=== PATIENT | male | born 1945 | race Caucasian/White ===

== ENCOUNTER 2020-07-05 14:00 | Inpatient (IN) | payer MEDICARE, BC, OTHER ==
[2020-07-05] MEDS: Sodium Chloride 0.9% 10 ML Syringe FLUSH PRN ×3 (15:41→18:06)
[2020-07-05] MEDS ORDERED: Albuterol/Ipratropium 3.0-0.5 MG/3 ML Neb Soln INH PRN (16:17)
[2020-07-05] MEDS ORDERED: Albuterol 8 GM Inhaler INH PRN (16:17)
[2020-07-05] MEDS ORDERED: cefTRIAXone 1 GM in Sodium Chloride 0.9% 50 ML IV SCH (16:30)
[2020-07-05] MEDS: Enoxaparin 40 MG/0.4 ML Syringe SUBCUT SCH (16:31)
[2020-07-05] MEDS: cefTRIAXone 1 GM Vial IVPUSH SCH (16:59)
[2020-07-05] MEDS: Doxycycline 100 MG in Sodium Chloride 0.9% 100 ML IV SCH (17:05)
[2020-07-05] MEDS ORDERED: Albuterol/Ipratropium 3.0-0.5 MG/3 ML Neb Soln NEB ONE (17:32)
--- NOTE | 2020-07-05 18:40 | PCM.HP.2 ---
H&P History of Present Illness - General Date of Service: 07/05/20 Admit Problem/Dx: Admission Diagnosis/Problem Admission Diagnosis/Problem Pneumonia Source of Information: Patient, Old Records, Provider - History of Present Illness Initial Comments - Free Text/Narative: Marcus was seen in [facility] on 06/29 for shortness of breath, wheezing, coughing, was found to have elevated white count of 25.6, found to have questionable bilateral pneumonia with COPD, given Azithromycin 250 mg, 500 mg day 1 and 250 mg daily x 4 days, DuoNebs and Albuterol nebs. He was rechecked on 07/01, added Prednisone 40 mg daily, has 4 pills left, was taken 1 tab in am and 1 tab in pm. Worsening breathing today when presented to [facility], WBC was 33, CXR left lower pneumonia, has wheezing throughout. 51 yr 2 ppd history, quit 1 year ago on his own. Drinks socially. Has had some nausea but no vomiting, epigastric tenderness. Had diarrhea but formed stool this morning. No dysuria, frequency or hematuria. No chest pain, swollen glands. No rash, some mosquito bites to left knee. No edema. History of anxiety, taking Fluoxetine and Ativan. 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 - Related Data Allergies/Adverse Reactions: Allergies Allergy/AdvReac Type Severity Reaction Status Date / Time No Known Allergies Allergy Verified 07/05/20 14:31 Home Medications: Home Meds Albuterol [Proventil HFA] 1 - 2 inh INH Q4H PRN 07/05/20 [History] Albuterol/Ipratropium [DuoNeb 3.0-0.5 MG/3 ML] 1 inh INH Q4H PRN 07/05/20 [History] FLUoxetine HCl [Prozac] 20 mg PO DAILY 07/05/20 [History] Ibuprofen 400 mg PO ASDIRECTED PRN 07/05/20 [History] LORazepam [Lorazepam] 1 mg PO BID PRN 07/05/20 [History] predniSONE 40 mg PO DAILY 07/05/20 [History] Past Medical History HEENT History: Reports: Cataract Respiratory History: Reports: Asthma Gastrointestinal History: Reports: Other (See Below) Other Gastrointestinal History: diverticulitis Musculoskeletal History: Reports: Back Pain, Chronic, Fracture, Other (See Below) Other Musculoskeletal History: right foot fx in a boot Neurological History: Reports: None Psychiatric History: Reports: Anxiety Endocrine/Metabolic History: Reports: None Hematologic History: Reports: None Immunologic History: Reports: None Oncologic (Cancer) History: Reports: None Dermatologic History: Reports: None - Infectious Disease History Infectious Disease History: Reports: Chicken Pox, Measles, Mononucleosis, Mumps, Shingles - Past Surgical History HEENT Surgical History: Reports: Cataract Surgery, Tonsillectomy GI Surgical History: Reports: Colonoscopy Social & Family History - Family History Family Medical History: Noncontributory - Tobacco Use Smoking Status *Q: Former Smoker Used Tobacco, but Quit: Yes Month/Year Tobacco Last Used: 1 year ago - Caffeine Use Caffeine Use: Reports: Coffee, Soda, Tea - Recreational Drug Use Recreational Drug Use: No H&P Review of Systems - Review of Systems: Review Of Systems: Comprehensive ROS is negative, except as noted in HPI. Exam - Exam Exam: See Below - Vital Signs Vital Signs: Last Vital Signs Temp 97.8 F 07/05/20 16:35 Pulse 81 07/05/20 18:00 Resp 20 07/05/20 16:35 BP 115/64 07/05/20 16:35 Pulse Ox 95 07/05/20 16:35 Weight: 175 lb 1.6 oz - Exam General: Alert, Oriented, Cooperative HEENT: PERRLA, Conjunctiva Clear, Hearing Intact, Mucosa Moist & [place]ck: Supple, Trachea Midline. No: Lymphadenopathy Lungs: Normal Respiratory Effort, Rales (throughout), Wheezing (throughout) Cardiovascular: Regular Rate, Regular Rhythm GI/Abdominal Exam: Normal Bowel Sounds, Soft, No Distention, Tender (epigastric, diffuse in lower abdomen) (Male) Exam: Deferred Rectal (Males) Exam: Deferred Back Exam: No: CVA Tenderness (R), CVA Tenderness (L) Extremities: No Pedal Edema Skin: Warm, Dry, Intact, Other (healing mosquito bites on left knee) Sepsis Event Note - Evaluation Sepsis Screening Result: Sepsis Risk - Focused Exam Vital Signs: Vital Signs Temp Pulse Pulse Resp BP Pulse Ox Pulse Ox 07/05/20 18:00 81 07/05/20 17:44 92 07/05/20 16:35 97.8 F 80 20 115/64 95 07/05/20 15:45 91 L 07/05/20 14:25 98.1 F 103 H 16 115/58 L 91 L Pulse Ox 07/05/20 18:00 07/05/20 17:44 07/05/20 16:35 07/05/20 15:45 07/05/20 14:25 91 L *Q Meaningful Use (ADM) - VTE Risk Assess *Q Each Risk Factor Represents 1 Point: Serious lung disease including pneumonia Total Score 1 Point Risk Factors: 1 Each Risk Factor Represents 2 Points: Age 60 - 74 Years Total Score 2 Point Risk Factors: 2 Each Risk Factor Represents 3 Points: None Total Score 3 Point Risk Factors: 0 Each Risk Factor Represents 5 Points: None Total Score 5 Point Risk Factors: 0 Venous Thromboembolism Risk Factor Score *Q: 3 - Problem List (1) Left lower lobe pneumonia SNOMED Code(s): 903222532 ICD Code: J18.9 - PNEUMONIA, UNSPECIFIED ORGANISM Status: Acute Current Visit: Yes (2) Anxiety SNOMED Code(s): 65559161 ICD Code: F41.9 - ANXIETY DISORDER, UNSPECIFIED Status: Acute Current Visit: Yes (3) Former smoker SNOMED Code(s): 0415829 ICD Code: Z87.891 - PERSONAL HISTORY OF NICOTINE DEPENDENCE Status: Acute Current Visit: Yes (4) COPD (chronic obstructive pulmonary disease) SNOMED Code(s): 14201730 ICD Code: J44.9 - CHRONIC OBSTRUCTIVE PULMONARY DISEASE, UNSPECIFIED Status: Acute Current Visit: Yes Problem List Initiated/Reviewed/Updated: Yes Orders Last 24hrs: Active Orders 24 hr Category Date Time Status Patient Status [ADT] Routine ADT 07/05/20 14:49 Active Ambulate [RC] ASDIRECTED Care 07/05/20 14:49 Active Oxygen Therapy [RC] PRN Care 07/05/20 14:49 Active RT Aerosol Therapy [RC] ASDIRECTED Care 07/05/20 16:18 Active RT Aerosol Therapy [RC] ASDIRECTED Care 07/05/20 17:32 Active RT Post Treatment Assessment [RC] Click to Edit Care 07/05/20 16:18 Active VTE/DVT Education [RC] Per Unit Routine Care 07/05/20 14:49 Active Vital Signs [RC] Q4H Care 07/05/20 14:49 Active Regular Diet [DIET] Diet 07/05/20 Lunch Active Albuterol [Ventolin HFA] Med 07/05/20 16:17 Active 0 gm INH Q4H PRN Albuterol/Ipratropium [DuoNeb 3.0-0.5 MG/3 ML] Med 07/05/20 21:00 Active 3 ml INH QIDRT Doxycycline [Vibramycin] 100 mg Med 07/05/20 17:00 Active Sodium Chloride 0.9% [Normal Saline] 100 ml IV Q12H Enoxaparin [Lovenox] Med 07/05/20 16:00 Active 40 mg SUBCUT Q24H FLUoxetine [PROzac] Med 07/06/20 09:00 Active 20 mg PO DAILY Ibuprofen [Motrin] Med 07/05/20 16:20 Active 400 mg PO Q4H PRN LORazepam [Ativan] Med 07/05/20 16:17 Active 1 mg PO BID PRN Sodium Chloride 0.9% [Saline Flush] Med 07/05/20 14:52 Active 10 ml FLUSH ASDIRECTED PRN cefTRIAXone [Rocephin] Med 07/05/20 16:30 Active 1 gm IVPUSH Q24H Antiembolic Hose [OM.PC] Per Unit Routine Oth 07/05/20 14:50 Ordered Saline Lock Insert [OM.PC] Routine Oth 07/05/20 14:52 Ordered Resuscitation Status Routine Resus Stat 07/05/20 14:49 Ordered Medication Orders Albuterol (Ventolin Hfa) 0 gm INH Q4H PRN PRN Reason: Dyspnea Albuterol/Ipratropium (Duoneb 3.0-0.5 Mg/3 Ml) 3 ml INH QIDRT [facility] Ceftriaxone Sodium (Rocephin) 1 gm IVPUSH Q24H [facility] Last Admin: 07/05/20 16:59 Dose: 1 gm Documented by: JAYSHREE Enoxaparin Sodium (Lovenox) 40 mg SUBCUT Q24H REPLACED BY [facility] Last Admin: 07/05/20 16:31 Dose: 40 mg Documented by: JAYSHREE Fluoxetine HCl (Prozac) 20 mg PO DAILY REPLACED BY [facility] Doxycycline Hyclate 100 mg/ (Sodium Chloride) 100 mls @ 100 mls/hr IV Q12H REPLACED BY [facility] Last Admin: 07/05/20 17:05 Dose: 100 mls/hr Documented by: JAYSHREE Ibuprofen (Motrin) 400 mg PO Q4H PRN PRN Reason: Pain Lorazepam (Ativan) 1 mg PO BID PRN PRN Reason: Anxiety Sodium Chloride (Saline Flush) 10 ml FLUSH ASDIRECTED PRN PRN Reason: Keep Vein Open Last Admin: 07/05/20 18:06 Dose: 10 ml Documented by: Admin: 07/05/20 16:59 Dose: 10 ml Documented by: Admin: 07/05/20 15:41 Dose: 10 ml Documented by: ADONIS Assessment/Plan Comment:: 1. Admit for Community acquired pneumonia, IV antibiotics. 2. Rocephin 1 gram IV q24h, Doxycycline 100 mg IV bid. Repeat labs tomorrow. 3. DuoNebs qid scheduled, Albuterol nebs q4h prn. 4. Regular diet. 5. DVT prophylaxis: Lovenox 40 mg SQ daily. 6. Continue Home medications. 7. FULL CODE. - Mortality Measure Prognosis:: Good
[2020-07-05] MEDS: Albuterol/Ipratropium 3.0-0.5 MG/3 ML Neb Soln INH SCH (21:44)
[2020-07-06] MEDS: Sodium Chloride 0.9% 10 ML Syringe FLUSH PRN (04:31)
[2020-07-06] MEDS: Doxycycline 100 MG in Sodium Chloride 0.9% 100 ML IV SCH ×2 (04:32→16:53)
[2020-07-06] MEDS: Ibuprofen 400 MG Tab PO PRN ×2 (04:45→16:09)
[2020-07-06] MEDS: Albuterol/Ipratropium 3.0-0.5 MG/3 ML Neb Soln INH SCH ×3 (06:27→20:13)
[2020-07-06] MEDS: FLUoxetine 20 MG Cap PO SCH (08:41)
--- NOTE | 2020-07-06 11:19 | PCM.PN ---
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 Stools normal. Tolerated breakfast well. - Patient Data Vitals - Most Recent: Last Vital Signs Temp 98.7 F 07/06/20 05:45 Pulse 88 07/06/20 06:27 Resp 16 07/06/20 04:00 BP 150/76 H 07/06/20 04:00 Pulse Ox 94 L 07/06/20 04:00 Weight - Most Recent: 175 lb 1.6 oz I&O - Last 24 Hours: Intake & Output 07/05/20 07/06/20 07/06/20 22:59 06:59 14:59 Intake Total 100 Balance 100 Lab Results Last 24 Hours: Laboratory Results - last 24 hr 07/06/20 07/06/20 Range/Units 06:25 06:25 WBC 20.8 H (4.5-12.0) X10-3/uL RBC 3.92 L (4.30-5.75) x10(6)uL Hgb 11.9 L D (13.5-17.8) g/dL Hct 36.1 (30.0-51.3) % MCV 92.2 (80-96) fL MCH 30.5 (27.7-33.6) pg MCHC 33.1 (32.2-35.4) g/dL RDW 13.9 (11.5-15.5) % Plt Count 292 (125-369) X10(3)uL MPV 8.4 (7.4-10.4) fL Add Manual Diff Yes Neutrophils % (Manual) 92 H (46-82) % Lymphocytes % (Manual) 6 L (13-37) % Monocytes % (Manual) 2 L (4-12) % Sodium 130 L (135-145) mmol/L Potassium 3.5 (3.5-5.3) mmol/L Chloride 94 L (100-110) mmol/L Carbon Dioxide 29 (21-32) mmol/L BUN 18 (7-18) mg/dL Creatinine 1.0 (0.70-1.30) mg/dL Est Cr Clr Drug Dosing 58.48 mL/min Estimated GFR (MDRD) > 60 (>60) BUN/Creatinine Ratio 18.0 (9-20) Glucose 166 H (80-116) mg/dL Calcium 7.1 L (8.6-10.2) mg/dL Med Orders - Current: Current Medications Albuterol (Ventolin Hfa) 0 gm INH Q4H PRN PRN Reason: Dyspnea Albuterol/Ipratropium (Duoneb 3.0-0.5 Mg/3 Ml) 3 ml INH QIDRT [facility] Last Admin: 07/06/20 06:27 Dose: 3 ml Documented by: Ceftriaxone Sodium (Rocephin) 1 gm IVPUSH Q24H [facility] Last Admin: 07/05/20 16:59 Dose: 1 gm Documented by: Enoxaparin Sodium (Lovenox) 40 mg SUBCUT Q24H [facility] Last Admin: 07/05/20 16:31 Dose: 40 mg Documented by: Fluoxetine HCl (Prozac) 20 mg PO DAILY [facility] Last Admin: 07/06/20 08:41 Dose: 20 mg Documented by: Doxycycline Hyclate 100 mg/ (Sodium Chloride) 100 mls @ 100 mls/hr IV Q12H [facility] Last Admin: 07/06/20 04:32 Dose: 100 mls/hr Documented by: Sodium Chloride (Normal Saline) 1,000 mls @ 100 mls/hr IV ASDIRECTED [facility] Ibuprofen (Motrin) 400 mg PO Q4H PRN PRN Reason: Pain Last Admin: 07/06/20 04:45 Dose: 400 mg Documented by: Lorazepam (Ativan) 1 mg PO BID PRN PRN Reason: Anxiety Sodium Chloride (Saline Flush) 10 ml FLUSH ASDIRECTED PRN PRN Reason: Keep Vein Open Last Admin: 07/06/20 04:31 Dose: 10 ml Documented by: Discontinued Medications Albuterol/Ipratropium (Duoneb 3.0-0.5 Mg/3 Ml) 3 ml INH Q4H PRN PRN Reason: Dyspnea Albuterol/Ipratropium (Duoneb 3.0-0.5 Mg/3 Ml) 3 ml NEB ONETIME ONE Stop: 07/05/20 17:33 Last Admin: 07/05/20 17:44 Dose: 3 ml Documented by: - Exam General: Alert, Oriented, Cooperative, No Acute Distress Lungs: Normal Respiratory Effort, Decreased Breath Sounds (decreased air entry), Rales (left lower lobe). No: Wheezing Cardiovascular: Regular Rate, Regular Rhythm GI/Abdominal Exam: Normal Bowel Sounds, Soft, Non-Tender, No Distention Extremities: No Pedal Edema Peripheral Pulses: 2+: Radial (L), Radial (R) Skin: Warm, Dry, Intact Sepsis Event Note - Evaluation Sepsis Screening Result: No Definite Risk - Focused Exam Vital Signs: Vital Signs Temp Temp Temp Pulse Resp BP Pulse Ox 07/06/20 06:27 88 07/06/20 05:45 98.7 F 07/06/20 04:45 99.9 F 07/06/20 04:00 99.9 F 99 16 150/76 H 94 L 07/06/20 00:00 97.8 F 82 18 102/60 95 - Problem List & Annotations (1) Left lower lobe pneumonia SNOMED Code(s): 798278640 Code(s): J18.9 - PNEUMONIA, UNSPECIFIED ORGANISM Status: Acute Current Visit: Yes (2) Anxiety SNOMED Code(s): 71936953 Code(s): F41.9 - ANXIETY DISORDER, UNSPECIFIED Status: Acute Current Visit: Yes (3) Former smoker SNOMED Code(s): 5340992 Code(s): Z87.891 - PERSONAL HISTORY OF NICOTINE DEPENDENCE Status: Acute Current Visit: Yes (4) COPD (chronic obstructive pulmonary disease) SNOMED Code(s): 49466092 Code(s): J44.9 - CHRONIC OBSTRUCTIVE PULMONARY DISEASE, UNSPECIFIED Status: Acute Current Visit: Yes Annotation/Comment:: on chest x-ray, states he had PFTs at [place] but not sure what they said. - Problem List Review Problem List Initiated/Reviewed/Updated: Yes - My Orders Last 24 Hours: My Active Orders 07/05/20 Lunch Regular Diet [DIET] 07/05/20 14:49 Patient Status [ADT] Routine Ambulate [RC] ASDIRECTED Oxygen Therapy [RC] PRN VTE/DVT Education [RC] Per Unit Routine Vital Signs [RC] Q4H Resuscitation Status Routine 07/05/20 14:50 Antiembolic Hose [OM.PC] Per Unit Routine 07/05/20 14:52 Sodium Chloride 0.9% [Saline Flush] 10 ml FLUSH ASDIRECTED PRN Saline Lock Insert [OM.PC] Routine 07/05/20 16:00 Enoxaparin [Lovenox] 40 mg SUBCUT Q24H 07/05/20 16:17 Albuterol [Ventolin HFA] 0 gm INH Q4H PRN LORazepam [Ativan] 1 mg PO BID PRN 07/05/20 16:18 RT Aerosol Therapy [RC] ASDIRECTED 07/05/20 16:20 Ibuprofen [Motrin] 400 mg PO Q4H PRN 07/05/20 16:30 cefTRIAXone [Rocephin] 1 gm IVPUSH Q24H 07/05/20 17:00 Doxycycline [Vibramycin] 100 mg Sodium Chloride 0.9% [Normal Saline] 100 ml IV Q12H 07/05/20 21:00 Albuterol/Ipratropium [DuoNeb 3.0-0.5 MG/3 ML] 3 ml INH QIDRT 07/06/20 08:15 Sodium Chloride 0.9% [Normal Saline] 1,000 ml IV ASDIRECTED 07/06/20 09:00 FLUoxetine [PROzac] 20 mg PO DAILY 07/06/20 09:18 Communication Order [RC] Q1HWA Incentive Spirometry [RT Incentive Spirometry] [RC] Q1HWA 07/07/20 06:00 BASIC METABOLIC PANEL,BMP [CHEM] Routine CBC WITH AUTO DIFF [HEME] Routine - Plan Plan:: 1. Rocephin 1 gram IV q24h, Doxycycline 100 mg IV bid day 2. WBC down to 20.8, 92% Neutrophils. Repeat labs tomorrow. 2. Hyponatremia: NS 100 ml/hr, recheck labs tomorrow. 3. DuoNebs qid scheduled, Albuterol nebs q4h prn.
[2020-07-06] MEDS: LORazepam 1 MG Tab PO PRN (16:17)
[2020-07-06] MEDS: Enoxaparin 40 MG/0.4 ML Syringe SUBCUT SCH (16:49)
[2020-07-06] MEDS: cefTRIAXone 1 GM Vial IVPUSH SCH (16:50)
[2020-07-06] MEDS ORDERED: Levalbuterol HCl 1.25 MG/3 ML Neb NEB PRN (16:55)
[2020-07-06] MEDS: Sodium Chloride 0.9% 1,000 ML IV SCH (20:00)
[2020-07-06] MEDS: Budesonide 0.25 MG/2 ML Neb Susp NEB SCH (20:10)
[2020-07-06] MEDS: Tamsulosin 0.4 MG Cap.ER PO SCH (20:10)
[2020-07-07] MEDS: Doxycycline 100 MG in Sodium Chloride 0.9% 100 ML IV SCH ×2 (04:28→16:41)
[2020-07-07] MEDS ORDERED: Acetaminophen 325 MG Tab PO PRN ×2 (05:44→08:23)
[2020-07-07] MEDS: LORazepam 1 MG Tab PO PRN (05:47)
[2020-07-07] MEDS: Sodium Chloride 0.9% 1,000 ML IV SCH ×2 (05:51→16:07)
[2020-07-07] MEDS: Budesonide 0.25 MG/2 ML Neb Susp NEB SCH ×2 (06:07→20:35)
[2020-07-07] MEDS ORDERED: LORazepam 1 MG Tab PO PRN (08:24)
--- NOTE | 2020-07-07 09:23 | PCM.PN ---
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 He states he does not feel as jittery since medication was changed. Feels better. Had episode of anxiety this morning. Temp of 100.2 yesterday came down with Tylenol. He was incontinent of stool yesterday, states he has history of diverticulitis, but usually has abdominal pain with it. He stated Metronidazole makes him sick to his stomach and have metallic taste. Denies any abdominal pain now. - Patient Data Vitals - Most Recent: Last Vital Signs Temp 98.9 F 07/07/20 06:17 Pulse 98 07/07/20 06:17 Resp 18 07/07/20 06:17 BP 119/69 07/07/20 05:45 Pulse Ox 95 07/07/20 06:17 Weight - Most Recent: 175 lb 1.6 oz Lab Results Last 24 Hours: Laboratory Results - last 24 hr 07/07/20 07/07/20 Range/Units 06:30 06:30 WBC 21.7 H (4.5-12.0) X10-3/uL RBC 4.21 L (4.30-5.75) x10(6)uL Hgb 13.0 L (13.5-17.8) g/dL Hct 38.8 (30.0-51.3) % MCV 92.2 (80-96) fL MCH 30.9 (27.7-33.6) pg MCHC 33.5 (32.2-35.4) g/dL RDW 14.1 (11.5-15.5) % Plt Count 345 (125-369) X10(3)uL MPV 8.7 (7.4-10.4) fL Add Manual Diff Yes Neutrophils % (Manual) 91 H (46-82) % Band Neutrophils % 2 (0-6) % Lymphocytes % (Manual) 3 L (13-37) % Monocytes % (Manual) 4 (4-12) % Sodium 132 L (135-145) mmol/L Potassium 3.3 L (3.5-5.3) mmol/L Chloride 97 L (100-110) mmol/L Carbon Dioxide 29 (21-32) mmol/L BUN 13 (7-18) mg/dL Creatinine 0.9 (0.70-1.30) mg/dL Est Cr Clr Drug Dosing 64.98 mL/min Estimated GFR (MDRD) > 60 (>60) BUN/Creatinine Ratio 14.4 (9-20) Glucose 128 H (80-116) mg/dL Calcium 7.6 L (8.6-10.2) mg/dL Med Orders - Current: Current Medications Acetaminophen (Tylenol) 650 mg PO Q4H PRN PRN Reason: Fever Budesonide (Pulmicort) 0.25 mg NEB BIDRT [facility] Last Admin: 07/07/20 06:07 Dose: 0.25 mg Documented by: Ceftriaxone Sodium (Rocephin) 1 gm IVPUSH Q24H [facility] Last Admin: 07/06/20 16:50 Dose: 1 gm Documented by: Enoxaparin Sodium (Lovenox) 40 mg SUBCUT Q24H [facility] Last Admin: 07/06/20 16:49 Dose: 40 mg Documented by: Fluoxetine HCl (Prozac) 20 mg PO DAILY [facility] Last Admin: 07/06/20 08:41 Dose: 20 mg Documented by: Doxycycline Hyclate 100 mg/ (Sodium Chloride) 100 mls @ 100 mls/hr IV Q12H [facility] Last Admin: 07/07/20 04:28 Dose: 100 mls/hr Documented by: Sodium Chloride (Normal Saline) 1,000 mls @ 100 mls/hr IV ASDIRECTED [facility] Last Admin: 07/07/20 05:51 Dose: 100 mls/hr Documented by: Ibuprofen (Motrin) 400 mg PO Q4H PRN PRN Reason: Pain Last Admin: 07/06/20 16:09 Dose: 400 mg Documented by: Levalbuterol HCl (Xopenex) 1.25 mg NEB Q4H PRN PRN Reason: Shortness of Breath Lorazepam (Ativan) 1 mg PO Q6H PRN PRN Reason: Anxiety Saccharomyces Boulardii (Florastor) 250 mg PO BID [facility] Sodium Chloride (Saline Flush) 10 ml FLUSH ASDIRECTED PRN PRN Reason: Keep Vein Open Last Admin: 07/06/20 04:31 Dose: 10 ml Documented by: Tamsulosin HCl (Flomax) 0.4 mg PO BEDTIME [facility] Last Admin: 07/06/20 20:10 Dose: 0.4 mg Documented by: Discontinued Medications Acetaminophen (Tylenol) 325 mg PO Q4H PRN PRN Reason: Fever Last Admin: 07/07/20 06:03 Dose: 325 mg Documented by: Albuterol (Ventolin Hfa) 0 gm INH Q4H PRN PRN Reason: Dyspnea Albuterol/Ipratropium (Duoneb 3.0-0.5 Mg/3 Ml) 3 ml INH Q4H PRN PRN Reason: Dyspnea Albuterol/Ipratropium (Duoneb 3.0-0.5 Mg/3 Ml) 3 ml INH QIDRT [facility] Last Admin: 07/06/20 20:13 Dose: Not Given Documented by: Albuterol/Ipratropium (Duoneb 3.0-0.5 Mg/3 Ml) 3 ml NEB ONETIME ONE Stop: 07/05/20 17:33 Last Admin: 07/05/20 17:44 Dose: 3 ml Documented by: Lorazepam (Ativan) 1 mg PO BID PRN PRN Reason: Anxiety Last Admin: 07/07/20 05:47 Dose: 1 mg Documented by: - Exam General: Alert, Oriented, Cooperative, No Acute Distress Lungs: Clear to Auscultation (BUL), Normal Respiratory Effort, Decreased Breath Sounds (BLL), Crackles (LLL), Wheezing (BLL) Cardiovascular: Regular Rate, Regular Rhythm GI/Abdominal Exam: Normal Bowel Sounds, Soft, Non-Tender, No Distention. No: Guarding, Rigid, Rebound Peripheral Pulses: 2+: Radial (L), Radial (R) Sepsis Event Note - Evaluation Sepsis Screening Result: No Definite Risk - Focused Exam Vital Signs: Vital Signs Temp Pulse Pulse Resp BP Pulse Ox Pulse Ox 07/07/20 06:17 98.9 F 98 98 18 96 95 07/07/20 06:07 108 H 22 H 95 07/07/20 05:45 100.2 F 120 H 22 H 119/69 91 L 07/07/20 03:30 98.2 F 93 20 120/66 93 L 07/07/20 00:00 97.7 F 74 20 100/49 L 93 L - Problem List & Annotations (1) Left lower lobe pneumonia SNOMED Code(s): 711515854 Code(s): J18.9 - PNEUMONIA, UNSPECIFIED ORGANISM Status: Acute Current Visit: Yes (2) Anxiety SNOMED Code(s): 75773214 Code(s): F41.9 - ANXIETY DISORDER, UNSPECIFIED Status: Acute Current Visit: Yes (3) Former smoker SNOMED Code(s): 7311296 Code(s): Z87.891 - PERSONAL HISTORY OF NICOTINE DEPENDENCE Status: Acute Current Visit: Yes (4) COPD (chronic obstructive pulmonary disease) SNOMED Code(s): 88245262 Code(s): J44.9 - CHRONIC OBSTRUCTIVE PULMONARY DISEASE, UNSPECIFIED Status: Acute Current Visit: Yes Annotation/Comment:: on chest x-ray, states he had PFTs at [place] but not sure what they said. (5) Diarrhea SNOMED Code(s): 63057056 Code(s): R19.7 - DIARRHEA, UNSPECIFIED Status: Acute Current Visit: Yes (6) Hyponatremia SNOMED Code(s): 41798480 Code(s): E87.1 - HYPO-OSMOLALITY AND HYPONATREMIA Status: Acute Current Visit: Yes - Problem List Review Problem List Initiated/Reviewed/Updated: Yes - My Orders Last 24 Hours: My Active Orders 07/06/20 09:00 FLUoxetine [PROzac] 20 mg PO DAILY 07/06/20 09:18 Communication Order [RC] Q1HWA Incentive Spirometry [RT Incentive Spirometry] [RC] Q1HWA 07/06/20 16:55 levalbuterol HCL [Xopenex] 1.25 mg NEB Q4H PRN 07/06/20 21:00 Budesonide [Pulmicort] 0.25 mg NEB BIDRT Tamsulosin [Flomax] 0.4 mg PO BEDTIME 07/07/20 08:23 Acetaminophen [TylenoL] 650 mg PO Q4H PRN 07/07/20 08:24 LORazepam [Ativan] 1 mg PO Q6H PRN 07/07/20 09:15 Saccharomyces Boulardii [Florastor] 250 mg PO BID 07/08/20 06:00 BASIC METABOLIC PANEL,BMP [CHEM] Routine CBC WITH AUTO DIFF [HEME] Routine - Plan Plan:: 1. Rocephin 1 gram IV q24h, Doxycycline 100 mg IV bid day 3. WBC down to 21.7, 91% Neutrophils. Repeat labs tomorrow. 2. Hyponatremia: improving, NS 100 ml/hr, potassium mild decreased, recheck labs tomorrow. 3. Budesonide nebs bid, Xopenex nebs q4h prn. 4. Diarrhea: most likely secondary to antibiotics, Florastor 250 mg bid. If develops abdominal pain then would get CT abdomen/pelvis. 5. Anxiety: Ativan changed from bid to q6h as needed. 6. Adjust treatments as necessary.
[2020-07-07] MEDS: FLUoxetine 20 MG Cap PO SCH (10:52)
[2020-07-07] MEDS: Saccharomyces Boulardii (Probiotic) 250 MG Cap PO SCH ×2 (10:57→20:35)
[2020-07-07] MEDS: predniSONE 20 MG Tab PO SCH (13:18)
[2020-07-07] MEDS: Enoxaparin 40 MG/0.4 ML Syringe SUBCUT SCH (16:28)
[2020-07-07] MEDS: cefTRIAXone 1 GM Vial IVPUSH SCH (16:28)
[2020-07-07] MEDS ORDERED: Loperamide 2 MG Cap PO ONE (17:15)
[2020-07-07] MEDS ORDERED: Loperamide 2 MG Cap ONE (17:38)
[2020-07-07] MEDS: Tamsulosin 0.4 MG Cap.ER PO SCH (20:35)
[2020-07-07] MEDS ORDERED: Loperamide 2 MG Cap PO PRN (23:16)
[2020-07-08] MEDS: Sodium Chloride 0.9% 1,000 ML IV SCH (02:30)
[2020-07-08] MEDS: Doxycycline 100 MG in Sodium Chloride 0.9% 100 ML IV SCH (04:31)
[2020-07-08] MEDS: Budesonide 0.25 MG/2 ML Neb Susp NEB SCH ×2 (06:34→20:58)
[2020-07-08] MEDS: predniSONE 20 MG Tab PO SCH (08:23)
[2020-07-08] MEDS: Saccharomyces Boulardii (Probiotic) 250 MG Cap PO SCH ×2 (08:23→20:57)
[2020-07-08] MEDS: FLUoxetine 20 MG Cap PO SCH (08:24)
--- NOTE | 2020-07-08 11:15 | PCM.PN ---
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 He is 114/56 this morning. His breathing is better, has not had tachycardia since changing to Xopenex. He states he did notice his heart racing after taking Albuterol nebs at home as well. Was incontinent of stool yesterday, stool culture ordered and then Imodium ordered. Has not had any stools since. Still feeling a little weak. - Patient Data Vitals - Most Recent: Last Vital Signs Temp 97.5 F 07/08/20 06:00 Pulse 90 07/08/20 06:35 Resp 16 07/08/20 06:00 BP 114/56 L 07/08/20 06:00 Pulse Ox 94 L 07/08/20 06:00 Weight - Most Recent: 175 lb 1.6 oz I&O - Last 24 Hours: Intake & Output 07/07/20 07/08/20 07/08/20 22:59 06:59 14:59 Intake Total 508 400 400 Balance 508 400 400 Lab Results Last 24 Hours: Laboratory Results - last 24 hr 07/08/20 07/08/20 Range/Units 06:35 06:35 WBC 18.3 H (4.5-12.0) X10-3/uL RBC 4.16 L (4.30-5.75) x10(6)uL Hgb 12.8 L (13.5-17.8) g/dL Hct 38.3 (30.0-51.3) % MCV 92.2 (80-96) fL MCH 30.7 (27.7-33.6) pg MCHC 33.3 (32.2-35.4) g/dL RDW 14.2 (11.5-15.5) % Plt Count 398 H (125-369) X10(3)uL MPV 8.2 (7.4-10.4) fL Add Manual Diff Yes Neutrophils % (Manual) 76 (46-82) % Band Neutrophils % 4 (0-6) % Lymphocytes % (Manual) 15 (13-37) % Monocytes % (Manual) 5 (4-12) % Sodium 135 (135-145) mmol/L Potassium 3.5 (3.5-5.3) mmol/L Chloride 100 (100-110) mmol/L Carbon Dioxide 29 (21-32) mmol/L BUN 11 (7-18) mg/dL Creatinine 0.9 (0.70-1.30) mg/dL Est Cr Clr Drug Dosing 64.98 mL/min Estimated GFR (MDRD) > 60 (>60) BUN/Creatinine Ratio 12.2 (9-20) Glucose 109 (80-116) mg/dL Calcium 8.1 L (8.6-10.2) mg/dL Med Orders - Current: Current Medications Acetaminophen (Tylenol) 650 mg PO Q4H PRN PRN Reason: Fever Budesonide (Pulmicort) 0.25 mg NEB BIDRT [facility] Last Admin: 07/08/20 06:34 Dose: 0.25 mg Documented by: Cefdinir (Omnicef) 300 mg PO BID [facility] Doxycycline Hyclate (Vibra-Tabs) 100 mg PO BID [facility] Enoxaparin Sodium (Lovenox) 40 mg SUBCUT Q24H [facility] Last Admin: 07/07/20 16:28 Dose: 40 mg Documented by: Fluoxetine HCl (Prozac) 20 mg PO DAILY [facility] Last Admin: 07/08/20 08:24 Dose: 20 mg Documented by: Sodium Chloride (Normal Saline) 1,000 mls @ 100 mls/hr IV ASDIRECTED [facility] Last Admin: 07/08/20 02:30 Dose: 100 mls/hr Documented by: Ibuprofen (Motrin) 400 mg PO Q4H PRN PRN Reason: Pain Last Admin: 07/06/20 16:09 Dose: 400 mg Documented by: Levalbuterol HCl (Xopenex) 1.25 mg NEB Q4H PRN PRN Reason: Shortness of Breath Loperamide HCl (Imodium) 2 mg PO Q6H PRN PRN Reason: Diarrhea Lorazepam (Ativan) 1 mg PO Q6H PRN PRN Reason: Anxiety Prednisone (Prednisone) 40 mg PO DAILY [facility] Stop: 07/09/20 09:01 Last Admin: 07/08/20 08:23 Dose: 40 mg Documented by: Prednisone (Prednisone) 20 mg PO DAILY [facility] Stop: 07/13/20 09:01 Prednisone (Prednisone) 10 mg PO DAILY [facility] Stop: 07/16/20 09:01 Saccharomyces Boulardii (Florastor) 250 mg PO BID [facility] Last Admin: 07/08/20 08:23 Dose: 250 mg Documented by: Sodium Chloride (Saline Flush) 10 ml FLUSH ASDIRECTED PRN PRN Reason: Keep Vein Open Last Admin: 07/06/20 04:31 Dose: 10 ml Documented by: Tamsulosin HCl (Flomax) 0.4 mg PO BEDTIME [facility] Last Admin: 07/07/20 20:35 Dose: 0.4 mg Documented by: Discontinued Medications Acetaminophen (Tylenol) 325 mg PO Q4H PRN PRN Reason: Fever Last Admin: 07/07/20 06:03 Dose: 325 mg Documented by: Albuterol (Ventolin Hfa) 0 gm INH Q4H PRN PRN Reason: Dyspnea Albuterol/Ipratropium (Duoneb 3.0-0.5 Mg/3 Ml) 3 ml INH Q4H PRN PRN Reason: Dyspnea Albuterol/Ipratropium (Duoneb 3.0-0.5 Mg/3 Ml) 3 ml INH QIDRT [facility] Last Admin: 07/06/20 20:13 Dose: Not Given Documented by: Albuterol/Ipratropium (Duoneb 3.0-0.5 Mg/3 Ml) 3 ml NEB ONETIME ONE Stop: 07/05/20 17:33 Last Admin: 07/05/20 17:44 Dose: 3 ml Documented by: Ceftriaxone Sodium (Rocephin) 1 gm IVPUSH Q24H [facility] Last Admin: 07/07/20 16:28 Dose: 1 gm Documented by: Doxycycline Hyclate 100 mg/ (Sodium Chloride) 100 mls @ 100 mls/hr IV Q12H [facility] Last Admin: 07/08/20 04:31 Dose: 100 mls/hr Documented by: Loperamide HCl (Imodium) 4 mg PO ONETIME ONE Stop: 07/07/20 17:16 Last Admin: 07/07/20 17:59 Dose: 4 mg Documented by: Loperamide HCl (Imodium) Confirm Administered Dose 4 mg .ROUTE .STK-MED ONE Stop: 07/07/20 17:39 Last Admin: 07/07/20 20:15 Dose: Not Given Documented by: Lorazepam (Ativan) 1 mg PO BID PRN PRN Reason: Anxiety Last Admin: 07/07/20 05:47 Dose: 1 mg Documented by: - Exam General: Alert, Oriented, No Acute Distress Lungs: Clear to Auscultation (RLL), Normal Respiratory Effort, Crackles (LLL), Wheezing Cardiovascular: Regular Rate, Regular Rhythm GI/Abdominal Exam: Soft, Non-Tender, No Distention, Abnormal Bowel Sounds (hyperactive). No: Guarding Extremities: No Pedal Edema Sepsis Event Note - Evaluation Sepsis Screening Result: No Definite Risk - Focused Exam Vital Signs: Vital Signs Temp Pulse Pulse Resp BP Pulse Ox 07/08/20 06:35 90 90 07/08/20 06:00 97.5 F 90 16 114/56 L 94 L 07/08/20 02:00 97.5 F 83 16 100/53 L 95 - Problem List & Annotations (1) Left lower lobe pneumonia SNOMED Code(s): 319955055 Code(s): J18.9 - PNEUMONIA, UNSPECIFIED ORGANISM Status: Acute Current Visit: Yes (2) Anxiety SNOMED Code(s): 27499063 Code(s): F41.9 - ANXIETY DISORDER, UNSPECIFIED Status: Acute Current Visit: Yes (3) Former smoker SNOMED Code(s): 8769552 Code(s): Z87.891 - PERSONAL HISTORY OF NICOTINE DEPENDENCE Status: Acute Current Visit: Yes (4) COPD (chronic obstructive pulmonary disease) SNOMED Code(s): 43656365 Code(s): J44.9 - CHRONIC OBSTRUCTIVE PULMONARY DISEASE, UNSPECIFIED Status: Acute Current Visit: Yes Annotation/Comment:: on chest x-ray, states he had PFTs at [place] but not sure what they said. (5) Diarrhea SNOMED Code(s): 35195337 Code(s): R19.7 - DIARRHEA, UNSPECIFIED Status: Acute Current Visit: Yes Qualifiers: Diarrhea type: unspecified type Qualified Code(s): R19.7 - Diarrhea, unspecified Annotation/Comment:: they were not able to collect stool sample prior to giving Imodium. Bowel sounds are still hyperactive, will monitor for any change. Floraster 250 mg bid (6) Hyponatremia SNOMED Code(s): 63492947 Code(s): E87.1 - HYPO-OSMOLALITY AND HYPONATREMIA Status: Resolved Current Visit: Yes - Problem List Review Problem List Initiated/Reviewed/Updated: Yes - My Orders Last 24 Hours: My Active Orders 07/07/20 12:00 predniSONE 40 mg PO DAILY 07/07/20 17:15 STOOL CULTURE Routine 07/07/20 23:16 Loperamide [Imodium] 2 mg PO Q6H PRN 07/08/20 21:00 Cefdinir [Omnicef] 300 mg PO BID Doxycycline [Vibra-Tabs] 100 mg PO BID 07/09/20 06:00 BASIC METABOLIC PANEL,BMP [CHEM] Routine CBC WITH AUTO DIFF [HEME] Routine 07/10/20 09:00 predniSONE 20 mg PO DAILY 07/13/20 09:00 predniSONE 10 mg PO DAILY - Plan Plan:: 1. Had 3 days of Rocephin 1 gram, Doxycycline 100 mg IV will change to Cefdinir 300 mg bid starting tonight and Doxycycline 100 mg po bid. WBC down to 18.3, 76% Neutrophils. Repeat labs tomorrow. 2. Hyponatremia: resolved, saline lock. 3. Budesonide nebs bid, Xopenex nebs q4h prn. 4. Diarrhea: most likely secondary to antibiotics, Florastor 250 mg bid. Stool culture, Imodium given x 1. 5. Anxiety: Ativan changed from bid to q6h as needed. 6. Adjust treatments as necessary, anticipate discharge tomorrow if tolerates oral antibiotics and has no further diarrhea.
[2020-07-08] MEDS: Enoxaparin 40 MG/0.4 ML Syringe SUBCUT SCH (16:19)
[2020-07-08] MEDS: Tamsulosin 0.4 MG Cap.ER PO SCH (20:57)
[2020-07-08] MEDS: Cefdinir 300 MG Cap PO SCH (21:00)
[2020-07-08] MEDS: Doxycycline 100 MG Tab PO SCH (21:00)
[2020-07-09] MEDS: Budesonide 0.25 MG/2 ML Neb Susp NEB SCH (07:02)
[2020-07-09] MEDS: Cefdinir 300 MG Cap PO SCH (08:02)
[2020-07-09] MEDS: predniSONE 20 MG Tab PO SCH (08:02)
[2020-07-09] MEDS: Saccharomyces Boulardii (Probiotic) 250 MG Cap PO SCH (08:02)
[2020-07-09] MEDS: Doxycycline 100 MG Tab PO SCH (08:02)
[2020-07-09] MEDS: FLUoxetine 20 MG Cap PO SCH (08:02)
[2020-07-09] MEDS ORDERED: Potassium Chloride 20 MEQ Tab.ER PO ONE (09:00)
--- NOTE | 2020-07-09 16:49 | PCM.DCSUM1 ---
Discharge Summary - Hospital Course HPI Initial Comments: Marcus was seen in [facility] on 06/29 for shortness of breath, wheezing, coughing, was found to have elevated white count of 25.6, found to have questionable bilateral pneumonia with COPD, given Azithromycin 250 mg, 500 mg day 1 and 250 mg daily x 4 days, DuoNebs and Albuterol nebs. He was rechecked on 07/01, added Prednisone 40 mg daily, has 4 pills left, was taken 1 tab in am and 1 tab in pm. Worsening breathing today when presented to [facility], WBC was 33, CXR left lower pneumonia, has wheezing throughout. 51 yr 2 ppd history, quit 1 year ago on his own. Drinks socially. Has had some nausea but no vomiting, epigastric tenderness. Had diarrhea but formed stool this morning. No dysuria, frequency or hematuria. No chest pain, swollen glands. No rash, some mosquito bites to left knee. No edema. History of anxiety, taking Fluoxetine and Ativan. 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 Diagnosis: Stroke: No - Discharge Data Discharge Date: 07/09/20 Discharge Disposition: Home, Self-Care 01 Condition: Good - Referral to Home Health Primary Care Physician: Michelle Beatty NP - Discharge Diagnosis/Problem(s) (1) Left lower lobe pneumonia SNOMED Code(s): 908086654 ICD Code: J18.9 - PNEUMONIA, UNSPECIFIED ORGANISM Status: Acute Problem Details: improving, tolerating oral antibiotics, will go home with 6 more days of Cefdinir and Doxycycline. Prednisone taper. Xopenex & Budesonide nebs. (2) Anxiety SNOMED Code(s): 93996496 ICD Code: F41.9 - ANXIETY DISORDER, UNSPECIFIED Status: Acute (3) Former smoker SNOMED Code(s): 7816225 ICD Code: Z87.891 - PERSONAL HISTORY OF NICOTINE DEPENDENCE Status: Acute (4) COPD (chronic obstructive pulmonary disease) SNOMED Code(s): 82198244 ICD Code: J44.9 - CHRONIC OBSTRUCTIVE PULMONARY DISEASE, UNSPECIFIED Status: Acute Problem Details: on chest x-ray, states he had PFTs at [facility] but not sure what they said. (5) Diarrhea SNOMED Code(s): 57806226 ICD Code: R19.7 - DIARRHEA, UNSPECIFIED Status: Acute Problem Details: stool culture pending. 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 COVID negative. He had failed outpatient treatment from 06/29 & 07/01, had complet ed Azithromycin 500 mg day 1, 250 mg day 2-5, albuterol, duonebs and Prednisone 40 mg x 3 days. Started on Rocephin 1 g IV q24h and Doxycycline 100 mg IV bid, albuterol nebs and DuoNebs, probiotics. He had some episodes of sinus tachycardia, diaphoresis with albuterol confirmed by EKG so changed to Xopenex nebs and Budesonide nebs, his tachycardia, anxiety improved. His Ativan was increased to every 6 hours initially as he was having more anxiety, then he required less Ativan with changing to Xopenex and Budesonide nebs and discontinuation of DuoNebs and Albuterol. His blood pressure dropped on 07/07 to 81/55, Prednisone was restarted 40 mg daily x 3 days, blood pressures came up and remained in normal ranges. His white count trended down and today was 11.8. He was on NS at 100 ml/hr to correct his sodium which slowly trended up, and was normal 07/08. He was saline locked and switched to oral antibiotics: Cefdinir and Doxycycline which he tolerated. He also had few episodes of bowel incontinence, stool culture pending. Imodium given and diarrhea improved. He also was having issues starting and stopping his urine stream so was started on Tamsulosin on 07/06 at bedtime, will have him recheck in [facility] on Sunday to see how is responding to the Tamsulosin, recheck his blood pressures and pneumonia. He does not require any home health services. - Patient Instructions Diet: Regular Diet as Tolerated Activity: As Tolerated Driving: May Drive Today Showering/Bathing: May Shower Notify Provider of: Fever, Nausea and/or Vomiting Other/Special Instructions: Follow up with Michelle Beatty NP or [facility] provider on Thursday 07/12 for post hospital recheck. Take all your antibotics until finished. You were started on a new medication Tamulosin for your enlarged prostate, you are being sent home with 14 day supply, if it is helping then further refills from your primary care provider. You will take Prednisone 20 mg daily starting tomorrow 07/10, in the morning for 3 days then go down to Prednisone 10 mg daily starting Friday 07/13 in the mornings for 3 days then stop. DO NOT TAKE ALBUTEROL OR DUONEBS that you have at home, you were sent home the nebulized medications that you had in the hospital. - Discharge Plan *PRESCRIPTION DRUG MONITORING PROGRAM REVIEWED*: Not Applicable *COPY OF PRESCRIPTION DRUG MONITORING REPORT IN PATIENT [place]: Not Applicable Prescriptions/Med Rec: Acidophilus/Lactobac Spor [Acidolphilus X-Strength] 1 tab PO BID 6 Days #12 tablet Tamsulosin [Flomax] 0.4 mg PO BEDTIME 14 Days #14 cap.er Cefdinir [Omnicef] 300 mg PO BID 6 Days #12 cap predniSONE 10 mg PO DAILY 3 Days #3 tablet predniSONE 20 mg PO DAILY 3 Days #3 tablet Budesonide [Pulmicort] 0.25 mg NEB BIDRT 7 Days #14 neb Doxycycline [Vibra-Tabs] 100 mg PO BID 6 Days #12 tablet levalbuterol HCL [Xopenex] 1.25 mg NEB Q4H PRN 7 Days #42 neb PRN Reason: Shortness Of Breath Home Medications: Home Meds FLUoxetine HCl [Prozac] 20 mg PO DAILY 07/05/20 [History] Ibuprofen 400 mg PO ASDIRECTED PRN 07/05/20 [History] LORazepam [Lorazepam] 1 mg PO BID PRN 07/05/20 [History] Acetaminophen [Tylenol] 650 mg PO Q4H PRN tablet 07/09/20 [Rx] Acidophilus/Lactobac Spor [Acidolphilus X-Strength] 1 tab PO BID 6 Days #12 tablet 07/09/20 [Rx] Budesonide [Pulmicort] 0.25 mg NEB BIDRT 7 Days #14 neb 07/09/20 [Rx] Cefdinir [Omnicef] 300 mg PO BID 6 Days #12 cap 07/09/20 [Rx] Doxycycline [Vibra-Tabs] 100 mg PO BID 6 Days #12 tablet 07/09/20 [Rx] Tamsulosin [Flomax] 0.4 mg PO BEDTIME 14 Days #14 cap.er 07/09/20 [Rx] levalbuterol HCL [Xopenex] 1.25 mg NEB Q4H PRN 7 Days #42 neb 07/09/20 [Rx] predniSONE 10 mg PO DAILY 3 Days #3 tablet 07/09/20 [Rx] predniSONE 20 mg PO DAILY 3 Days #3 tablet 07/09/20 [Rx] Patient Handouts: Levalbuterol inhalation solution, Lactobacillus Oral formulations, Cefdinir capsules, Budesonide inhalation solution, Doxycycline tablets or capsules, Antibiotic Resistance, Antibiotic Medicine, Adult, Tamsulosin capsules, You've Been Prescribed an Antibiotic in the Hospital for an Infection - CDC, Community-Acquired Pneumonia, Adult, [id number] Referrals: Michelle Beatty, [employer] [Primary Care Provider] - - Discharge Summary/Plan Comment DC Time >30 min.: No - General Info Date of Service: 07/09/20 Subjective Update: 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 No diarrhea today. We were able to get stool culture which is pending. No nausea, vomiting or abdominal pain. No wheezing. Tolerating the oral Cefdinir and Doxycycline fine. - Patient Data Vitals - Most Recent: Last Vital Signs Temp 97.9 F 07/09/20 08:50 Pulse 92 07/09/20 08:50 Resp 18 07/09/20 08:50 BP 126/63 07/09/20 08:50 Pulse Ox 96 07/09/20 08:50 Weight - Most Recent: 175 lb 1.6 oz Lab Results - Last 24 hrs: Laboratory Results - last 24 hr 07/09/20 07/09/20 Range/Units 06:15 06:15 WBC 11.8 (4.5-12.0) X10-3/uL RBC 3.80 L (4.30-5.75) x10(6)uL Hgb 11.7 L (13.5-17.8) g/dL Hct 35.0 (30.0-51.3) % MCV 92.0 (80-96) fL MCH 30.8 (27.7-33.6) pg MCHC 33.5 (32.2-35.4) g/dL RDW 14.2 (11.5-15.5) % Plt Count 376 H (125-369) X10(3)uL MPV 8.0 (7.4-10.4) fL Neut % (Auto) 74.5 (46-82) % Lymph % (Auto) 14.6 (13-37) % [place] % (Auto) 6.4 (4-12) % Eos % (Auto) 0 L (1.0-5.0) % Baso % (Auto) 4 H (0-2) % Neut # (Auto) 8.8 H (1.6-8.3) # Lymph # (Auto) 1.7 (0.6-5.0) # [place] # (Auto) 0.8 (0.0-1.3) # Eos # (Auto) 0.0 (0.0-0.8) # Baso # (Auto) 0.5 H (0.0-0.2) # Sodium 138 (135-145) mmol/L Potassium 3.3 L (3.5-5.3) mmol/L Chloride 103 (100-110) mmol/L Carbon Dioxide 31 (21-32) mmol/L BUN 10 (7-18) mg/dL Creatinine 0.7 (0.70-1.30) mg/dL Est Cr Clr Drug Dosing 83.55 mL/min Estimated GFR (MDRD) > 60 (>60) BUN/Creatinine Ratio 14.3 (9-20) Glucose 88 (80-116) mg/dL Calcium 8.0 L (8.6-10.2) mg/dL Med Orders - Current: Current Medications Discontinued Medications Acetaminophen (Tylenol) 325 mg PO Q4H PRN PRN Reason: Fever Last Admin: 07/07/20 06:03 Dose: 325 mg Documented by: Acetaminophen (Tylenol) 650 mg PO Q4H PRN PRN Reason: Fever Albuterol (Ventolin Hfa) 0 gm INH Q4H PRN PRN Reason: Dyspnea Albuterol/Ipratropium (Duoneb 3.0-0.5 Mg/3 Ml) 3 ml INH Q4H PRN PRN Reason: Dyspnea Albuterol/Ipratropium (Duoneb 3.0-0.5 Mg/3 Ml) 3 ml INH QIDRT [facility] Last Admin: 07/06/20 20:13 Dose: Not Given Documented by: Albuterol/Ipratropium (Duoneb 3.0-0.5 Mg/3 Ml) 3 ml NEB ONETIME ONE Stop: 07/05/20 17:33 Last Admin: 07/05/20 17:44 Dose: 3 ml Documented by: Budesonide (Pulmicort) 0.25 mg NEB BIDRT [facility] Last Admin: 07/09/20 07:02 Dose: 0.25 mg Documented by: Cefdinir (Omnicef) 300 mg PO BID [facility] Last Admin: 07/09/20 08:02 Dose: 300 mg Documented by: Ceftriaxone Sodium (Rocephin) 1 gm IVPUSH Q24H [facility] Last Admin: 07/07/20 16:28 Dose: 1 gm Documented by: Doxycycline Hyclate (Vibra-Tabs) 100 mg PO BID [facility] Last Admin: 07/09/20 08:02 Dose: 100 mg Documented by: Enoxaparin Sodium (Lovenox) 40 mg SUBCUT Q24H [facility] Last Admin: 07/08/20 16:19 Dose: 40 mg Documented by: Fluoxetine HCl (Prozac) 20 mg PO DAILY [facility] Last Admin: 07/09/20 08:02 Dose: 20 mg Documented by: Doxycycline Hyclate 100 mg/ (Sodium Chloride) 100 mls @ 100 mls/hr IV Q12H [facility] Last Admin: 07/08/20 04:31 Dose: 100 mls/hr Documented by: Sodium Chloride (Normal Saline) 1,000 mls @ 100 mls/hr IV ASDIRECTED [facility] Last Admin: 07/08/20 02:30 Dose: 100 mls/hr Documented by: Ibuprofen (Motrin) 400 mg PO Q4H PRN PRN Reason: Pain Last Admin: 07/06/20 16:09 Dose: 400 mg Documented by: Levalbuterol HCl (Xopenex) 1.25 mg NEB Q4H PRN PRN Reason: Shortness of Breath Loperamide HCl (Imodium) 4 mg PO ONETIME ONE Stop: 07/07/20 17:16 Last Admin: 07/07/20 17:59 Dose: 4 mg Documented by: Loperamide HCl (Imodium) 2 mg PO Q6H PRN PRN Reason: Diarrhea Loperamide HCl (Imodium) Confirm Administered Dose 4 mg .ROUTE .STK-MED ONE Stop: 07/07/20 17:39 Last Admin: 07/07/20 20:15 Dose: Not Given Documented by: Lorazepam (Ativan) 1 mg PO BID PRN PRN Reason: Anxiety Last Admin: 07/07/20 05:47 Dose: 1 mg Documented by: Lorazepam (Ativan) 1 mg PO Q6H PRN PRN Reason: Anxiety Potassium Chloride (Klor-Con M20) 20 meq PO ONETIME ONE Stop: 07/09/20 09:01 Last Admin: 07/09/20 08:48 Dose: 20 meq Documented by: Prednisone (Prednisone) 40 mg PO DAILY [facility] Stop: 07/09/20 09:01 Last Admin: 07/09/20 08:02 Dose: 40 mg Documented by: Prednisone (Prednisone) 20 mg PO DAILY [facility] Stop: 07/13/20 09:01 Prednisone (Prednisone) 10 mg PO DAILY [facility] Stop: 07/16/20 09:01 Saccharomyces Boulardii (Florastor) 250 mg PO BID [facility] Last Admin: 07/09/20 08:02 Dose: 250 mg Documented by: Sodium Chloride (Saline Flush) 10 ml FLUSH ASDIRECTED PRN PRN Reason: Keep Vein Open Last Admin: 07/06/20 04:31 Dose: 10 ml Documented by: Tamsulosin HCl (Flomax) 0.4 mg PO BEDTIME [facility] Last Admin: 07/08/20 20:57 Dose: 0.4 mg Documented by: - Exam General: Reports: Alert, Oriented, Cooperative, No Acute Distress Lungs: Reports: Clear to Auscultation, Normal Respiratory Effort, Crackles (left base, improved.). Denies: Rales, Rhonchi, Wheezing Cardiovascular: Reports: Regular Rate, Regular Rhythm GI/Abdominal Exam: Normal Bowel Sounds, Soft, Non-Tender, No Distention Extremities: No Pedal Edema Skin: Reports: Warm, Dry, Intact
[2020-07-10] MEDS ORDERED: predniSONE 20 MG Tab PO SCH (09:00)
[2020-07-13] MEDS ORDERED: predniSONE 10 MG Tab PO SCH (09:00)
== END 2020-07-09 10:30 | disposition home or self-care (01) | DRG 194 ==
LOC: FB.MS 14:00
PROVIDERS: ADMIT Family Medicine; ATTEND Family Medicine
DX: J18.9 Pneumonia, unspecified organism (principal); J44.0 Chronic obstructive pulmonary disease with (acute) lower respiratory infection; E87.1 Hypo-osmolality and hyponatremia; F41.9 Anxiety disorder, unspecified; R19.7 Diarrhea, unspecified; N40.0 Benign prostatic hyperplasia without lower urinary tract symptoms; G89.29 Other chronic pain; M54.9 Dorsalgia, unspecified; Z87.891 Personal history of nicotine dependence; Z79.52 Long term (current) use of systemic steroids; Z79.899 Other long term (current) drug therapy; Z98.49 Cataract extraction status, unspecified eye; Z20.828 Contact with and (suspected) exposure to other viral communicable diseases
CPT/HCPCS: 36415; 71046; 80048; 80053; 85025; 87045; 87046; 87427; 93005; 94150; 94640; 99214; A9270-GY; J0696; J1650; J3490; J7030; J7050; J7512; J7620-GY; U0002; U0003

== ENCOUNTER 2020-09-01 15:32 | Emergency (ER) | payer MEDICARE, BC ==
[2020-09-01] MEDS ORDERED: traMADol 50 MG Tab PO ONE (16:04)
[2020-09-01] MEDS ORDERED: Ketorolac 30 MG/ML SDV IVPUSH STA (16:04)
[2020-09-01] MEDS: Sodium Chloride 0.9% 10 ML Syringe FLUSH PRN ×2 (16:46→17:15)
--- NOTE | 2020-09-01 17:01 | EDM.PDOC ---
ED HPI GENERAL MEDICAL PROBLEM - General Chief Complaint: Fever Stated Complaint: FEVER Time Seen by Provider: 09/01/20 15:40 Source of Information: Reports: Patient History Limitations: Reports: No Limitations - History of Present Illness INITIAL COMMENTS - FREE TEXT/NARRATIVE: Patient presented to the ED because fever and left shoulder pain. He was recently diagnosed with lung abscess and is taking Rocephin 2 gm IV. NH staff said that he has fever but his temperature in the ED was normal. R upper arm Pain Score (Numeric/FACES): 8 - Related Data Allergies Allergy/AdvReac Type Severity Reaction Status Date / Time No Known Allergies Allergy Verified 07/05/20 14:31 Home Meds: Home Meds FLUoxetine HCl [Prozac] 20 mg PO DAILY 07/05/20 [History] Ibuprofen 400 mg PO ASDIRECTED PRN 07/05/20 [History] LORazepam [Lorazepam] 1 mg PO BID PRN 07/05/20 [History] Acetaminophen [Tylenol] 650 mg PO Q4H PRN tablet 07/09/20 [Rx] Acidophilus/Lactobac Spor [Acidolphilus X-Strength] 1 tab PO BID 6 Days #12 tablet 07/09/20 [Rx] Budesonide [Pulmicort] 0.25 mg NEB BIDRT 7 Days #14 neb 07/09/20 [Rx] Cefdinir [Omnicef] 300 mg PO BID 6 Days #12 cap 07/09/20 [Rx] Doxycycline [Vibra-Tabs] 100 mg PO BID 6 Days #12 tablet 07/09/20 [Rx] Tamsulosin [Flomax] 0.4 mg PO BEDTIME 14 Days #14 cap.er 07/09/20 [Rx] levalbuterol HCL [Xopenex] 1.25 mg NEB Q4H PRN 7 Days #42 neb 07/09/20 [Rx] predniSONE 10 mg PO DAILY 3 Days #3 tablet 07/09/20 [Rx] predniSONE 20 mg PO DAILY 3 Days #3 tablet 07/09/20 [Rx] traMADol [Ultram] 100 mg PO Q8H PRN #30 tablet 09/01/20 [Rx] Past Medical History HEENT History: Reports: Cataract Respiratory History: Reports: Asthma Gastrointestinal History: Reports: Other (See Below) Other Gastrointestinal History: diverticulitis Musculoskeletal History: Reports: Back Pain, Chronic, Fracture, Other (See Below) Other Musculoskeletal History: right foot fx in a boot Neurological History: Reports: None Psychiatric History: Reports: Anxiety Endocrine/Metabolic History: Reports: None Hematologic History: Reports: None Immunologic History: Reports: None Oncologic (Cancer) History: Reports: None Dermatologic History: Reports: None - Infectious Disease History Infectious Disease History: Reports: Chicken Pox, Measles, Mononucleosis, Mumps, Shingles - Past Surgical History HEENT Surgical History: Reports: Cataract Surgery, Tonsillectomy GI Surgical History: Reports: Colonoscopy Social & Family History - Family History Family Medical History: No Pertinent Family History - Caffeine Use Caffeine Use: Reports: Coffee, Soda, Tea ED ROS GENERAL - Review of Systems Review Of Systems: See Below Constitutional: Reports: No Symptoms HEENT: Reports: No Symptoms Respiratory: Reports: Cough, Sputum. Denies: Shortness of Breath Cardiovascular: Reports: No Symptoms Endocrine: Reports: No Symptoms GI/Abdominal: Reports: No Symptoms : Reports: No Symptoms Musculoskeletal: Reports: No Symptoms Skin: Reports: No Symptoms Neurological: Reports: No Symptoms ED EXAM, GENERAL - Physical Exam Exam: See Below Exam Limited By: No Limitations General Appearance: Alert, No Apparent Distress Ears: Normal External Exam, Normal Canal, Hearing Grossly Normal Nose: Normal Inspection, Normal Mucosa, No Blood Throat/Mouth: Normal Inspection, Normal Lips, Normal Teeth, Normal Oropharynx, Normal Voice Head: Atraumatic, Normocephalic Neck: Normal Inspection, Supple, Non-Tender, Full Range of Motion Respiratory/Chest: No Respiratory Distress, Lungs Clear, Decreased Breath Sounds Cardiovascular: Normal Peripheral Pulses, Regular Rate, Rhythm, No Edema, No Gallop GI/Abdominal: Normal Bowel Sounds, Soft, Non-Tender Back Exam: Normal Inspection, Full Range of Motion Course - Vital Signs Text/Narrative:: Lab results was discussed with patient Rocephin 2 gm IV Toradol 15 mg IV Tramadol 100 mg Last Recorded V/S: Last Vital Signs Temp 36.6 C 09/01/20 15:37 Pulse 97 09/01/20 15:37 Resp 20 09/01/20 15:37 BP 119/44 L 09/01/20 15:37 Pulse Ox 97 09/01/20 15:37 - Orders/Labs/Meds Orders: Active Orders 24 hr Category Date Time Status CBC WITH AUTO DIFF [HEME] Stat Lab 09/01/20 16:25 Received Sodium Chloride 0.9% [Saline Flush] Med 09/01/20 16:38 Active 10 ml FLUSH ASDIRECTED PRN Medication Orders Sodium Chloride (Saline Flush) 10 ml FLUSH ASDIRECTED PRN PRN Reason: Keep Vein Open Last Admin: 09/01/20 16:46 Dose: 10 ml Documented by: ADONIS Labs: Laboratory Tests 09/01/20 Range/Units 16:25 Sodium 134 L (135-145) mmol/L Potassium 4.5 D (3.5-5.3) mmol/L Chloride 98 L D (100-110) mmol/L Carbon Dioxide 30 (21-32) mmol/L BUN 8 (7-18) mg/dL Creatinine 0.8 (0.70-1.30) mg/dL Est Cr Clr Drug Dosing 78.38 mL/min Estimated GFR (MDRD) > 60 (>60) BUN/Creatinine Ratio 10.0 (9-20) Glucose 110 (80-116) mg/dL Calcium 8.4 L (8.6-10.2) mg/dL Meds: Medications Generic Name Dose Route Start Last Admin Trade Name Freq PRN Reason Stop Dose Admin Sodium Chloride 10 ml 09/01/20 16:38 09/01/20 16:46 Saline Flush FLUSH 10 ml ASDIRECTED PRN Administration Keep Vein Open Discontinued Medications Generic Name Dose Route Start Last Admin Trade Name Freq PRN Reason Stop Dose Admin Ketorolac Tromethamine 15 mg 09/01/20 16:04 09/01/20 16:42 Toradol IVPUSH 09/01/20 16:05 15 mg NOW STA Administration Tramadol HCl 100 mg 09/01/20 16:04 09/01/20 16:40 Ultram PO 09/01/20 16:05 100 mg ONETIME ONE Administration Departure - Departure Time of Disposition: 18:00 Disposition: DC/Tfer to [facility] Condition: Good Clinical Impression: Lung abscess, Shoulder pain - Discharge Information Prescriptions: traMADol [Ultram] 100 mg PO Q8H PRN #30 tablet PRN Reason: Pain Instructions: Shoulder Pain, Lung Abscess Referrals: Deangelo Arroyo MD [Primary Care Provider] - Forms: ED Department Discharge Additional Instructions: Please read discharge instructions on lung abscess and right shoulder pain Take the following medications for control of your fever and better pain relief Tramadol 100 mg with tylenol 1000 mg and 1ibuprofen 800 mg every 8 hours as needed for pain/fever Continue IV Rocephin We will give a copy of your cbc to the snf as soon as we get the result Follow up as needed Sepsis Event Note (ED) - Evaluation Sepsis Screening Result: Possible Sepsis Risk - Focused Exam Vital Signs: Vital Signs Temp Pulse Resp BP Pulse Ox 09/01/20 15:37 36.6 C 97 20 119/44 L 97 - My Orders Last 24 Hours: My Active Orders 09/01/20 16:25 CBC WITH AUTO DIFF [HEME] Stat 09/01/20 16:38 Sodium Chloride 0.9% [Saline Flush] 10 ml FLUSH ASDIRECTED PRN - Assessment/Plan Last 24 Hours: My Active Orders 09/01/20 16:25 CBC WITH AUTO DIFF [HEME] Stat 09/01/20 16:38 Sodium Chloride 0.9% [Saline Flush] 10 ml FLUSH ASDIRECTED PRN
== END 2020-09-01 17:37 ==
LOC: FB.ED 15:32
DX: J85.2 Abscess of lung without pneumonia (principal); M25.512 Pain in left shoulder; J45.909 Unspecified asthma, uncomplicated; F41.9 Anxiety disorder, unspecified; Z79.899 Other long term (current) drug therapy
CPT/HCPCS: 36415; 80048; 85025; 96374; 99284; A9270; J1885

== ENCOUNTER 2020-09-28 04:09 | Emergency (ER) | payer MEDICARE, BC ==
[2020-09-28] MEDS ORDERED: ALPRAZolam 0.25 MG Tab PO ONE (04:20)
[2020-09-28] MEDS ORDERED: Albuterol 0.083% 2.5 MG/3 ML Neb Soln NEB ONE (04:28)
[2020-09-28] MEDS ORDERED: Fluconazole 150 MG Tab PO ONE (04:28)
[2020-09-28] MEDS ORDERED: Fluconazole 100 MG Tab ONE (04:37)
[2020-09-28] MEDS ORDERED: Fluconazole 100 MG Tab PO ONE (04:41)
--- NOTE | 2020-09-28 04:51 | EDM.PDOC ---
ED HPI GENERAL MEDICAL PROBLEM - General Chief Complaint: Respiratory Problem Stated Complaint: PAIN Time Seen by Provider: 09/28/20 04:30 Source of Information: Reports: Patient History Limitations: Reports: No Limitations - History of Present Illness INITIAL COMMENTS - FREE TEXT/NARRATIVE: pt samantha king [facility] ON IV drugs for abscess in the lungs states he could not sleep this night as he was having chest tightness from breathing , sob when he attempts to take a deep breath states chest discomfort spreads to his throat , feels like throat irritation still has cough : productive of clear phlegm was tested for COVID 6 days ago: negative pt also has anxiety disorder had Xanax at bedtime does not have prn orders Onset: Today Onset Date: 09/28/20 Duration: Getting Worse Location: Reports: Chest Quality: Reports: Ache, Dull Severity: Moderate Improves with: Reports: None Worsens with: Reports: None Context: Reports: Other Associated Symptoms: Reports: Headaches, Shortness of Breath - Related Data Allergies Allergy/AdvReac Type Severity Reaction Status Date / Time No Known Allergies Allergy Verified 07/05/20 14:31 Home Meds: Home Meds FLUoxetine HCl [Prozac] 20 mg PO DAILY 07/05/20 [History] Ibuprofen 400 mg PO ASDIRECTED PRN 07/05/20 [History] LORazepam [Lorazepam] 1 mg PO BID PRN 07/05/20 [History] Acetaminophen [Tylenol] 650 mg PO Q4H PRN tablet 07/09/20 [Rx] Acidophilus/Lactobac Spor [Acidolphilus X-Strength] 1 tab PO BID 6 Days #12 tablet 07/09/20 [Rx] Budesonide [Pulmicort] 0.25 mg NEB BIDRT 7 Days #14 neb 07/09/20 [Rx] Cefdinir [Omnicef] 300 mg PO BID 6 Days #12 cap 07/09/20 [Rx] Doxycycline [Vibra-Tabs] 100 mg PO BID 6 Days #12 tablet 07/09/20 [Rx] Tamsulosin [Flomax] 0.4 mg PO BEDTIME 14 Days #14 cap.er 07/09/20 [Rx] levalbuterol HCL [Xopenex] 1.25 mg NEB Q4H PRN 7 Days #42 neb 07/09/20 [Rx] predniSONE 10 mg PO DAILY 3 Days #3 tablet 07/09/20 [Rx] predniSONE 20 mg PO DAILY 3 Days #3 tablet 07/09/20 [Rx] traMADol [Ultram] 100 mg PO Q8H PRN #30 tablet 09/01/20 [Rx] Past Medical History HEENT History: Reports: Cataract Respiratory History: Reports: Asthma Other Respiratory History: lung abscess Gastrointestinal History: Reports: Other (See Below) Other Gastrointestinal History: diverticulitis Musculoskeletal History: Reports: Back Pain, Chronic, Fracture, Other (See Below) Other Musculoskeletal History: right foot fx in a boot Neurological History: Reports: None Psychiatric History: Reports: Anxiety, Depression, Other (See Below) Other Psychiatric History: major depressive disorder, hx of nicotine dependence. Endocrine/Metabolic History: Reports: None Hematologic History: Reports: None Immunologic History: Reports: None Oncologic (Cancer) History: Reports: None Dermatologic History: Reports: None - Infectious Disease History Infectious Disease History: Reports: Chicken Pox, Measles, Mononucleosis, Mumps, Shingles - Past Surgical History HEENT Surgical History: Reports: Cataract Surgery, Tonsillectomy GI Surgical History: Reports: Colonoscopy Musculoskeletal Surgical History: Reports: None Social & Family History - Family History Family Medical History: No Pertinent Family History - Caffeine Use Caffeine Use: Reports: Coffee, Soda, Tea ED ROS GENERAL - Review of Systems Review Of Systems: See Below Constitutional: Reports: No Symptoms. Denies: Fever, Chills, Malaise, Weakness, Fatigue, Night Sweats, Diaphoresis, Decreased Appetite HEENT: Reports: No Symptoms, Throat Pain Respiratory: Reports: Shortness of Breath, Cough Cardiovascular: Reports: No Symptoms. Denies: Dyspnea on Exertion Endocrine: Reports: No Symptoms GI/Abdominal: Reports: No Symptoms : Reports: No Symptoms Musculoskeletal: Reports: No Symptoms Skin: Reports: No Symptoms Neurological: Reports: No Symptoms Psychiatric: Reports: Anxiety Hematologic/Lymphatic: Reports: No Symptoms Immunologic: Reports: No Symptoms ED EXAM, GENERAL - Physical Exam Exam: See Below Exam Limited By: No Limitations General Appearance: Alert, WD/WN, No Apparent Distress Eye Exam: Bilateral Eye: EOMI Ears: Normal External Exam Ear Exam: Bilateral Ear: Canal Normal Nose: Normal Inspection Throat/Mouth: Normal Oropharynx, Other (mild erythema) Head: Atraumatic, Normocephalic Neck: Supple, Non-Tender Respiratory/Chest: No Respiratory Distress, Lungs Clear Cardiovascular: Regular Rate, Rhythm Back Exam: Normal Inspection, Full Range of Motion Extremities: Normal Inspection, Normal Range of Motion Neurological: Alert, Oriented, CN II-XII Intact, Normal Cognition, No Motor/Sensory Deficits Psychiatric: Anxious Skin Exam: Warm, Dry, Intact Lymphatic: No Adenopathy Course - Vital Signs Last Recorded V/S: Last Vital Signs Temp 36.8 C 09/28/20 04:15 Pulse 118 H 09/28/20 04:15 Resp 17 09/28/20 04:15 BP 138/67 09/28/20 04:15 Pulse Ox 96 09/28/20 04:15 - Orders/Labs/Meds Orders: Active Orders 24 hr Category Date Time Status RT Aerosol Therapy [RC] ASDIRECTED Care 09/28/20 04:28 Active Meds: Medications Discontinued Medications Generic Name Dose Route Start Last Admin Trade Name Freq PRN Reason Stop Dose Admin Albuterol 2.5 mg 09/28/20 04:28 09/28/20 04:32 Proventil Neb Soln NEB 09/28/20 04:29 2.5 mg ONETIME ONE Administration Alprazolam 0.5 mg 09/28/20 04:20 09/28/20 04:43 Xanax PO 09/28/20 04:21 0.5 mg ONETIME ONE Administration Fluconazole 150 mg 09/28/20 04:28 09/28/20 04:47 Diflucan PO 09/28/20 04:29 Not Given ONETIME ONE Fluconazole Confirm 09/28/20 04:37 09/28/20 04:47 Diflucan Administered 09/28/20 04:38 Not Given Dose 200 mg .ROUTE .STK-MED ONE Fluconazole 100 mg 09/28/20 04:41 09/28/20 04:46 Diflucan PO 09/28/20 04:42 100 mg ONETIME ONE Administration - Re-Assessments/Exams Free Text/Narrative Re-Assessment/Exam: 09/28/20 04:54 pt was given albuterol neb : seems to make him breath better was also given Xanax for anxiety Had dose of 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 Departure - Departure Time of Disposition: 04:55 Disposition: DC/Tfer to SNF 03 Condition: Good Clinical Impression: Anxiety disorder due to general medical condition with panic attack, Oral pharyngeal candidiasis, Left lower lobe pneumonia - Discharge Information *PRESCRIPTION DRUG MONITORING PROGRAM REVIEWED*: Not Applicable *COPY OF PRESCRIPTION DRUG MONITORING REPORT IN PATIENT ROQUE: Not Applicable Instructions: Shortness of Breath, Adult, [id number], Oral Thrush, Adult, [id number] Referrals: PCP,None [Primary Care Provider] - Forms: ED Department Discharge Additional Instructions: follow up with PCP as needed continue with prescribed medications Sepsis Event Note (ED) - Evaluation Sepsis Screening Result: No Definite Risk - Focused Exam Vital Signs: Vital Signs Temp Pulse Resp BP Pulse Ox 09/28/20 04:15 36.8 C 118 H 17 138/67 96 - My Orders Last 24 Hours: My Active Orders 09/28/20 04:28 RT Aerosol Therapy [RC] ASDIRECTED - Assessment/Plan Last 24 Hours: My Active Orders 09/28/20 04:28 RT Aerosol Therapy [RC] ASDIRECTED
== END 2020-09-28 05:13 ==
LOC: FB.ED 04:09
DX: J18.9 Pneumonia, unspecified organism (principal); F41.0 Panic disorder [episodic paroxysmal anxiety]; B37.0 Candidal stomatitis; J45.909 Unspecified asthma, uncomplicated; F41.9 Anxiety disorder, unspecified; F32.9 Major depressive disorder, single episode, unspecified; Z79.899 Other long term (current) drug therapy
CPT/HCPCS: 94640; 99284; 99284-25; A9270-GY

== ENCOUNTER 2020-10-22 09:15 | Emergency (ER) | payer MEDICARE, BC ==
[2020-10-22] MEDS ORDERED: Sodium Chloride 0.9% 10 ML Syringe FLUSH PRN (09:30)
[2020-10-22] MEDS ORDERED: ALTEPLASE IV STA (10:08)
[2020-10-22] MEDS ORDERED: INFUSION IV STA (10:08)
--- NOTE | 2020-10-22 10:09 | EDM.PDOC ---
ED HPI GENERAL MEDICAL PROBLEM - General Chief Complaint: Neuro Symptoms/Deficits Stated Complaint: Weakness Time Seen by Provider: 10/22/20 09:45 Source of Information: Reports: Patient History Limitations: Reports: No Limitations - History of Present Illness INITIAL COMMENTS - FREE TEXT/NARRATIVE: Rosemary complains of sudden onset of left sided weakness. Started about 0845. He lost consciousness at that time,but is alert now. His blood sugar was 95 at that time.He has a h/o Lung abscess with recent [facility] antibiotic therapy. He has had stable HLD,anxiety and does endorse smoking. - Related Data Allergies Allergy/AdvReac Type Severity Reaction Status Date / Time No Known Allergies Allergy Verified 07/05/20 14:31 Home Meds: Home Meds FLUoxetine HCl [Prozac] 20 mg PO DAILY 07/05/20 [History] Ibuprofen 400 mg PO ASDIRECTED PRN 07/05/20 [History] LORazepam [Lorazepam] 1 mg PO BID PRN 07/05/20 [History] Acetaminophen [Tylenol] 650 mg PO Q4H PRN tablet 07/09/20 [Rx] Acidophilus/Lactobac Spor [Acidolphilus X-Strength] 1 tab PO BID 6 Days #12 tablet 07/09/20 [Rx] Budesonide [Pulmicort] 0.25 mg NEB BIDRT 7 Days #14 neb 07/09/20 [Rx] Cefdinir [Omnicef] 300 mg PO BID 6 Days #12 cap 07/09/20 [Rx] Doxycycline [Vibra-Tabs] 100 mg PO BID 6 Days #12 tablet 07/09/20 [Rx] Tamsulosin [Flomax] 0.4 mg PO BEDTIME 14 Days #14 cap.er 07/09/20 [Rx] levalbuterol HCL [Xopenex] 1.25 mg NEB Q4H PRN 7 Days #42 neb 07/09/20 [Rx] predniSONE 10 mg PO DAILY 3 Days #3 tablet 07/09/20 [Rx] predniSONE 20 mg PO DAILY 3 Days #3 tablet 07/09/20 [Rx] traMADol [Ultram] 100 mg PO Q8H PRN #30 tablet 09/01/20 [Rx] Past Medical History HEENT History: Reports: Cataract Respiratory History: Reports: Asthma Other Respiratory History: lung abscess Gastrointestinal History: Reports: Other (See Below) Other Gastrointestinal History: diverticulitis Musculoskeletal History: Reports: Back Pain, Chronic, Fracture, Other (See Below) Other Musculoskeletal History: right foot fx in a boot Neurological History: Reports: None Psychiatric History: Reports: Anxiety, Depression, Other (See Below) Other Psychiatric History: major depressive disorder, hx of nicotine dependence. Endocrine/Metabolic History: Reports: None Hematologic History: Reports: None Immunologic History: Reports: None Oncologic (Cancer) History: Reports: None Dermatologic History: Reports: None - Infectious Disease History Infectious Disease History: Reports: Chicken Pox, Measles, Mononucleosis, Mumps, Shingles - Past Surgical History HEENT Surgical History: Reports: Cataract Surgery, Tonsillectomy GI Surgical History: Reports: Colonoscopy Musculoskeletal Surgical History: Reports: None Social & Family History - Family History Family Medical History: No Pertinent Family History - Caffeine Use Caffeine Use: Reports: Coffee, Soda ED ROS GENERAL - Review of Systems Review Of Systems: Comprehensive ROS is negative, except as noted in HPI. ED EXAM, NEURO - Physical Exam Exam: See Below Exam Limited By: No Limitations General Appearance: Alert, WD/WN, No Apparent Distress Ears: Normal External Exam Nose: Normal Inspection Throat/Mouth: Normal Oropharynx Head Exam: Atraumatic Neck: Normal Inspection, Supple, Limited Range of Motion. No: Carotid Bruit Respiratory/Chest: No Respiratory Distress Cardiovascular: Normal Peripheral Pulses Neurological: Alert, Normal Mood/Affect, CN II-XII Intact, Oriented x 3, Other (Left leg weakness 1/5. Arm weaknes 3/5) Back Exam: Normal Inspection #1 Interpretation EKG Date: 10/22/20 Rhythm: NSR [place]: Normal Course - Orders/Labs/Meds Orders: Active Orders 24 hr Category Date Time Status EKG Documentation Completion [RC] ASDIRECTED Care 10/22/20 09:30 Active Head wo Cont [CT] Stat Exams 10/22/20 09:29 Taken TROPONIN I [CHEM] Stat Lab 10/22/20 09:40 Received Sodium Chloride 0.9% [Saline Flush] Med 10/22/20 09:30 Active 10 ml FLUSH ASDIRECTED PRN Peripheral IV Insertion Adult [OM.PC] Routine Oth 10/22/20 09:30 Ordered EKG 12 Lead [EK] Stat Ther 10/22/20 09:30 Ordered Medication Orders Sodium Chloride (Saline Flush) 10 ml FLUSH ASDIRECTED PRN PRN Reason: Keep Vein Open Labs: Laboratory Tests 10/22/20 10/22/20 10/22/20 Range/Units 09:40 09:40 09:40 WBC 16.4 H (3.2-10.1) x10-3/uL RBC 4.47 (3.90-5.90) x10(6)uL Hgb 12.2 L (12.9-17.7) g/dL Hct 37.7 L (38.3-50.1) % MCV 84.3 (80.8-98.7) fL MCH 27.4 (27.0-33.3) pg MCHC 32.4 (28.7-35.3) g/dL RDW 15.5 H (12.4-15.0) % Plt Count 569 H (117-477) x10(3)uL MPV 7.2 (6.7-11.0) fL Neut % (Auto) 75.3 H (40.3-71.8) % Lymph % (Auto) 14.1 L (15.8-45.3) % Ida % (Auto) 7.8 (5.5-15.2) % Eos % (Auto) 2.4 (0.1-6.8) % Baso % (Auto) 0.4 (0.3-3.8) % Neut # (Auto) 12.3 H (1.7-6.9) x10-3/uL Lymph # (Auto) 2.3 (0.5-4.5) x10-3/uL Ida # (Auto) 1.3 H (0.0-1.2) x10-3/uL Eos # (Auto) 0.4 (0.0-0.6) x10-3/uL Baso # (Auto) 0.1 (0.0-0.3) x10-3/uL PT 10.8 (9.0-11.1) sec INR 1.00 (1.00-1.24) Sodium 137 (135-145) mmol/L Potassium 4.3 (3.5-5.3) mmol/L Chloride 99 L (100-110) mmol/L Carbon Dioxide 30 (21-32) mmol/L BUN 12 (7-18) mg/dL Creatinine 0.9 (0.70-1.30) mg/dL Est Cr Clr Drug Dosing TNP Estimated GFR (MDRD) > 60 (>60) BUN/Creatinine Ratio 13.3 (9-20) Glucose 102 (80-116) mg/dL Calcium 9.0 (8.6-10.2) mg/dL Meds: Medications Generic Name Dose Route Start Last Admin Trade Name Freq PRN Reason Stop Dose Admin Sodium Chloride 10 ml 10/22/20 09:30 Saline Flush FLUSH ASDIRECTED PRN Keep Vein Open Departure - Departure Time of Disposition: 10:14 Disposition: DC/Tfer to Other 70 Condition: Good Clinical Impression: Stroke - Discharge Information Referrals: Michelle Beatty TRAFFIC ANALYST [Primary Care Provider] - - Problem List & Annotations (1) Stroke SNOMED Code(s): 481122894 Code(s): I63.9 - CEREBRAL INFARCTION, UNSPECIFIED Status: Acute Current Visit: Yes Qualifiers: CVA mechanism: unspecified Qualified Code(s): I63.9 - Cerebral infarction, unspecified - Problem List Review Problem List Initiated/Reviewed/Updated: Yes - My Orders Last 24 Hours: My Active Orders 10/22/20 09:29 Head wo Cont [CT] Stat 10/22/20 09:30 EKG Documentation Completion [RC] ASDIRECTED Sodium Chloride 0.9% [Saline Flush] 10 ml FLUSH ASDIRECTED PRN Peripheral IV Insertion Adult [OM.PC] Routine EKG 12 Lead [EK] Stat 10/22/20 09:40 TROPONIN I [CHEM] Stat - Assessment/Plan Last 24 Hours: My Active Orders 10/22/20 09:29 Head wo Cont [CT] Stat 10/22/20 09:30 EKG Documentation Completion [RC] ASDIRECTED Sodium Chloride 0.9% [Saline Flush] 10 ml FLUSH ASDIRECTED PRN Peripheral IV Insertion Adult [OM.PC] Routine EKG 12 Lead [EK] Stat 10/22/20 09:40 TROPONIN I [CHEM] Stat Plan: CT was done and read right wawy. Subacute infarcts noted. i spoke [facility] and will initiate tpa after patient consent. transfer to [place].
== END 2020-10-22 10:38 | disposition other institution (70) ==
LOC: FB.ED 09:15
DX: I63.9 Cerebral infarction, unspecified (principal); G81.94 Hemiplegia, unspecified affecting left nondominant side; J45.909 Unspecified asthma, uncomplicated; F41.9 Anxiety disorder, unspecified; F32.9 Major depressive disorder, single episode, unspecified; Z90.49 Acquired absence of other specified parts of digestive tract; Z79.899 Other long term (current) drug therapy
CPT/HCPCS: 36415; 37195; 70450; 80048; 84484; 85025; 85610; 93005; 99285; 99285-25; J2997

== ENCOUNTER 2021-02-06 20:17 | Emergency (ER) | payer MEDICARE, BC ==
--- NOTE | 2021-02-06 22:40 | EDM.PDOC ---
ED HPI GENERAL MEDICAL PROBLEM - General Chief Complaint: Gastrointestinal Problem Stated Complaint: PULLED TUBE OUT Time Seen by Provider: 02/06/21 21:00 Source of Information: Reports: Patient History Limitations: Reports: No Limitations - History of Present Illness INITIAL COMMENTS - FREE TEXT/NARRATIVE: c/o G-tube came out pt had g-tube placed in [place] about 3m ago, he gets supplement feeds at night to increase his caloric intake pt states he eats and drinks by mouth from [facility] PMH: chronic lung issues including COPD, malnutrition by hx pt had a 16-Somali g-tube with a 3-5 ml balloon, the old tube was intact without debris or discoloration, the balloon inflated without difficulty and retained fluid tract was gently dilated with a straight pickup and g-tube could not be reinserted Dr Bruno'parveen inserted a 12 FR farfan and then a 14 FR farfan and attempted to dilate stricture at about 1 cm depth at the inferior aspect of the rectus muscle he finally succeeded in replacing the original 14-FR g-tube and reinflated the balloon, saline flushed easily L leg Pain Score (Numeric/FACES): 7 - Related Data Allergies Allergy/AdvReac Type Severity Reaction Status Date / Time No Known Allergies Allergy Verified 02/06/21 20:52 Home Meds: Home Meds FLUoxetine HCl [Prozac] 20 mg PO DAILY 07/05/20 [History] Ibuprofen 400 mg PO ASDIRECTED PRN 07/05/20 [History] LORazepam [Lorazepam] 1 mg PO BID PRN 07/05/20 [History] Acetaminophen [Tylenol] 650 mg PO Q4H PRN tablet 07/09/20 [Rx] Acidophilus/Lactobac Spor [Acidolphilus X-Strength] 1 tab PO BID 6 Days #12 tablet 07/09/20 [Rx] Budesonide [Pulmicort] 0.25 mg NEB BIDRT 7 Days #14 neb 07/09/20 [Rx] Cefdinir [Omnicef] 300 mg PO BID 6 Days #12 cap 07/09/20 [Rx] Doxycycline [Vibra-Tabs] 100 mg PO BID 6 Days #12 tablet 07/09/20 [Rx] Tamsulosin [Flomax] 0.4 mg PO BEDTIME 14 Days #14 cap.er 07/09/20 [Rx] levalbuterol HCL [Xopenex] 1.25 mg NEB Q4H PRN 7 Days #42 neb 07/09/20 [Rx] predniSONE 10 mg PO DAILY 3 Days #3 tablet 07/09/20 [Rx] predniSONE 20 mg PO DAILY 3 Days #3 tablet 07/09/20 [Rx] traMADol [Ultram] 100 mg PO Q8H PRN #30 tablet 09/01/20 [Rx] Past Medical History HEENT History: Reports: Cataract Respiratory History: Reports: Asthma Other Respiratory History: lung abscess Gastrointestinal History: Reports: Other (See Below) Other Gastrointestinal History: diverticulitis Musculoskeletal History: Reports: Back Pain, Chronic, Fracture, Other (See Below) Other Musculoskeletal History: right foot fx in a boot Neurological History: Reports: None Psychiatric History: Reports: Anxiety, Depression, Other (See Below) Other Psychiatric History: major depressive disorder, hx of nicotine dependence. Endocrine/Metabolic History: Reports: None Hematologic History: Reports: None Immunologic History: Reports: None Oncologic (Cancer) History: Reports: None Dermatologic History: Reports: None - Infectious Disease History Infectious Disease History: Reports: Chicken Pox, Measles, Mononucleosis, Mumps, Shingles - Past Surgical History HEENT Surgical History: Reports: Cataract Surgery, Tonsillectomy GI Surgical History: Reports: Colonoscopy Musculoskeletal Surgical History: Reports: None Social & Family History - Family History Family Medical History: No Pertinent Family History - Caffeine Use Caffeine Use: Reports: Coffee ED ROS GENERAL - Review of Systems Review Of Systems: See Below Constitutional: Reports: No Symptoms HEENT: Reports: No Symptoms Respiratory: Reports: No Symptoms Cardiovascular: Reports: No Symptoms Endocrine: Reports: No Symptoms GI/Abdominal: Reports: No Symptoms. Denies: Abdominal Pain, Nausea, Vomiting : Reports: No Symptoms Musculoskeletal: Reports: No Symptoms Skin: Reports: No Symptoms Neurological: Reports: No Symptoms Psychiatric: Reports: No Symptoms Hematologic/Lymphatic: Reports: No Symptoms Immunologic: Reports: No Symptoms ED EXAM, GI/ABD - Physical Exam Exam: See Below Exam Limited By: No Limitations General Appearance: Alert, WD/WN, No Apparent Distress, Other (alert, conversant, nonill) Head: Atraumatic, Normocephalic Neck: Normal Inspection, Supple Respiratory/Chest: No Respiratory Distress, Lungs Clear, Normal Breath Sounds, No Accessory Muscle Use, Chest Non-Tender Cardiovascular: Regular Rate, Rhythm GI/Abdominal Exam: Normal Bowel Sounds, Soft, Non-Tender, Other (ileostomy present in LLQ, g-tube opening in LUQ, g-tube replaced as discussed in HPI, some discomfort, tolerated well by pt) Neurological: Alert, No Motor/Sensory Deficits Psychiatric: Normal Affect Skin Exam: Warm, Dry, Intact, Normal Color, No Rash Lymphatic: No Adenopathy Course - Vital Signs Last Recorded V/S: Last Vital Signs Temp 36.8 C 02/06/21 20:17 Pulse 103 H 02/06/21 20:17 Resp 20 02/06/21 20:17 BP 124/71 02/06/21 20:17 Pulse Ox 98 02/06/21 20:17 - Re-Assessments/Exams Free Text/Narrative Re-Assessment/Exam: 02/06/21 22:41 pt with splint on L hand and wrist g-tube track intact no restrictions per Dr Erickson Departure - Departure Time of Disposition: 22:33 Disposition: Home, Self-Care 01 Condition: Good Clinical Impression: Dislodged gastrostomy tube - Discharge Information *PRESCRIPTION DRUG MONITORING PROGRAM REVIEWED*: Not Applicable *COPY OF PRESCRIPTION DRUG MONITORING REPORT IN PATIENT ROQUE: Not Applicable Referrals: PCP,None [Primary Care Provider] - Additional Instructions: G-tube replaced with 5 ml saline used to reinflate balloon. Avoid putting traction on g-tube. Continue current feedings. Continue current medications. Continue usual care. No restrictions. See his physician as scheduled. Sepsis Event Note (ED) - Evaluation Sepsis Screening Result: No Definite Risk - Focused Exam Vital Signs: Vital Signs Temp Pulse Resp BP Pulse Ox 02/06/21 20:17 36.8 C 103 H 20 124/71 98
--- NOTE | 2021-02-06 22:47 | ER ---
DATE OF PROCEDURE: 02/06/2021 This 75-year-old gentleman is seen in the emergency room for a G-tube that got pulled today. It had been present for about three months. The tube he had was a 16-[place]. This was unable to be placed back in. Therefore, I initially put a 12-[place] Claudio which slid easily. A 14-[place] Claudio met some resistance. I then dilated it slightly with the balloon and was subsequently able to get the 16-[place] back in place. This was inflated with 5 mL in the balloon. Water flushes easily. [facility] to [facility] and can use this as needed. /[id number] JOSE/BEATRIZ
== END 2021-02-06 22:52 | disposition home or self-care (01) ==
LOC: FB.ED 20:17
DX: Z43.1 Encounter for attention to gastrostomy (principal); J45.909 Unspecified asthma, uncomplicated; Z79.899 Other long term (current) drug therapy
CPT/HCPCS: 99282; 99283

== ENCOUNTER 2022-10-26 12:26 | Inpatient (IN) | payer MEDICARE, BC ==
[2022-10-26] MEDS ORDERED: Ondansetron 4 MG/2 ML SDV IV PRN (12:49)
[2022-10-26] MEDS: methylPREDNISolone Sodium Succinate 125 MG/2 ML SDV IVPUSH SCH ×2 (13:17→22:32)
[2022-10-26] MEDS: Albuterol/Ipratropium 3.0-0.5 MG/3 ML Neb Soln NEB SCH ×3 (13:17→22:32)
[2022-10-26] MEDS: Levofloxacin/Dextrose 5%-Water 500 MG in Premix Bag 1 BAG IV SCH (13:21)
[2022-10-26] MEDS ORDERED: Diclofenac Sodium 1% Gel 100 GM Tube TOP PRN (22:32)
[2022-10-26] MEDS: ALPRAZolam 0.25 MG Tab PO PRN (23:34)
[2022-10-26] MEDS: atorvaSTATin 40 MG Tab PO SCH (23:34)
[2022-10-26] MEDS: Melatonin 3 MG Tab PO SCH (23:35)
[2022-10-26] MEDS: Gabapentin 300 MG Cap PO SCH (23:35)
[2022-10-27] MEDS: methylPREDNISolone Sodium Succinate 125 MG/2 ML SDV IVPUSH SCH ×2 (05:45→17:46)
[2022-10-27] MEDS: Albuterol/Ipratropium 3.0-0.5 MG/3 ML Neb Soln NEB SCH ×4 (06:28→21:07)
[2022-10-27 07:20] LABS: ESTIMATED GFR 92 mL/min (>60)
[2022-10-27] MEDS: Aspirin 81 MG Tab.EC PO SCH (08:48)
[2022-10-27] MEDS: Acetaminophen 325 MG Tab PO PRN (08:50)
[2022-10-27] MEDS: Fluticasone NASAL Spray 16 GM Bottle NASBOTH SCH (08:51)
[2022-10-27] MEDS: Multivitamin Tab PO SCH (08:51)
[2022-10-27] MEDS: FLUoxetine 20 MG Cap PO SCH (08:51)
[2022-10-27] MEDS: Gabapentin 300 MG Cap PO SCH ×3 (09:03→21:28)
[2022-10-27] MEDS ORDERED: Gabapentin 300 MG Cap PO SCH (12:00)
[2022-10-27] MEDS: Enoxaparin 40 MG/0.4 ML Syringe SUBCUT SCH (12:22)
[2022-10-27] MEDS: Emollient 454 GM Jar TOP SCH (12:23)
[2022-10-27] MEDS: Levofloxacin/Dextrose 5%-Water 500 MG in Premix Bag 1 BAG IV SCH (12:29)
[2022-10-27] MEDS: guaiFENesin 600 MG Tab.ER PO PRN (12:45)
[2022-10-27] MEDS: Sodium Chloride 0.9% 10 ML Syringe FLUSH PRN (17:51)
[2022-10-27] MEDS ORDERED: Melatonin 3 MG Tab PO SCH (21:00)
[2022-10-27] MEDS ORDERED: atorvaSTATin 40 MG Tab PO SCH (21:00)
[2022-10-27] MEDS: Melatonin 3 MG Tab PO SCH (21:28)
[2022-10-27] MEDS: atorvaSTATin 40 MG Tab PO SCH (21:28)
[2022-10-27] MEDS: ALPRAZolam 0.25 MG Tab PO PRN (21:41)
[2022-10-28] MEDS: methylPREDNISolone Sodium Succinate 125 MG/2 ML SDV IVPUSH SCH (05:35)
[2022-10-28] MEDS: Albuterol/Ipratropium 3.0-0.5 MG/3 ML Neb Soln NEB SCH ×4 (06:30→20:20)
[2022-10-28 07:06] LABS: ESTIMATED GFR 92 mL/min (>60)
[2022-10-28] MEDS: Fluticasone NASAL Spray 16 GM Bottle NASBOTH SCH (09:08)
[2022-10-28] MEDS: Aspirin 81 MG Tab.EC PO SCH (09:10)
[2022-10-28] MEDS: Gabapentin 300 MG Cap PO SCH ×3 (09:10→20:54)
[2022-10-28] MEDS: FLUoxetine 20 MG Cap PO SCH (09:11)
[2022-10-28] MEDS: Multivitamin Tab PO SCH (09:12)
[2022-10-28] MEDS: Emollient 454 GM Jar TOP SCH (09:13)
[2022-10-28] MEDS: Enoxaparin 40 MG/0.4 ML Syringe SUBCUT SCH (09:13)
[2022-10-28] MEDS ORDERED: Gabapentin 300 MG Cap ONE (09:48)
[2022-10-28] MEDS: Levofloxacin/Dextrose 5%-Water 500 MG in Premix Bag 1 BAG IV SCH (13:18)
[2022-10-28] MEDS: Sodium Chloride 0.9% 10 ML Syringe FLUSH PRN (14:15)
[2022-10-28] MEDS: atorvaSTATin 40 MG Tab PO SCH (20:22)
[2022-10-28] MEDS: Melatonin 3 MG Tab PO SCH (20:22)
[2022-10-29] MEDS: ALPRAZolam 0.25 MG Tab PO PRN ×2 (07:30→21:00)
[2022-10-29] MEDS: Albuterol/Ipratropium 3.0-0.5 MG/3 ML Neb Soln NEB SCH ×4 (07:51→20:42)
[2022-10-29] MEDS: Aspirin 81 MG Tab.EC PO SCH (08:38)
[2022-10-29] MEDS: FLUoxetine 20 MG Cap PO SCH (08:38)
[2022-10-29] MEDS: Multivitamin Tab PO SCH (08:38)
[2022-10-29] MEDS: Fluticasone NASAL Spray 16 GM Bottle NASBOTH SCH (08:38)
[2022-10-29] MEDS: Emollient 454 GM Jar TOP SCH (08:39)
[2022-10-29] MEDS: Enoxaparin 40 MG/0.4 ML Syringe SUBCUT SCH (08:40)
[2022-10-29] MEDS: Levofloxacin 500 MG Tab PO SCH (08:42)
[2022-10-29] MEDS: Gabapentin 300 MG Cap PO SCH ×3 (08:43→20:43)
[2022-10-29] MEDS: Acetaminophen 325 MG Tab PO PRN ×2 (08:48→20:42)
[2022-10-29] MEDS: guaiFENesin 600 MG Tab.ER PO PRN ×2 (08:48→20:43)
[2022-10-29] MEDS ORDERED: methylPREDNISolone Sodium Succinate 125 MG/2 ML SDV IVPUSH SCH (09:00)
[2022-10-29] MEDS: predniSONE 20 MG Tab PO SCH (11:18)
[2022-10-29] MEDS: atorvaSTATin 40 MG Tab PO SCH (20:43)
[2022-10-29] MEDS: Melatonin 3 MG Tab PO SCH (20:43)
[2022-10-30] MEDS: Albuterol/Ipratropium 3.0-0.5 MG/3 ML Neb Soln NEB SCH ×4 (06:06→20:48)
[2022-10-30] MEDS: Multivitamin Tab PO SCH (09:17)
[2022-10-30] MEDS: Gabapentin 300 MG Cap PO SCH ×3 (09:17→20:33)
[2022-10-30] MEDS: guaiFENesin 600 MG Tab.ER PO PRN ×2 (09:17→20:34)
[2022-10-30] MEDS: Aspirin 81 MG Tab.EC PO SCH (09:18)
[2022-10-30] MEDS: predniSONE 20 MG Tab PO SCH (09:18)
[2022-10-30] MEDS: FLUoxetine 20 MG Cap PO SCH (09:18)
[2022-10-30] MEDS: Fluticasone NASAL Spray 16 GM Bottle NASBOTH SCH (09:18)
[2022-10-30] MEDS: Levofloxacin 500 MG Tab PO SCH (09:18)
[2022-10-30] MEDS: Enoxaparin 40 MG/0.4 ML Syringe SUBCUT SCH (09:19)
[2022-10-30] MEDS: Emollient 454 GM Jar TOP SCH (09:19)
[2022-10-30] MEDS ORDERED: Calcium Carbonate 500 MG Tab.Chew PO PRN (10:28)
[2022-10-30] MEDS ORDERED: Albuterol/Ipratropium 3.0-0.5 MG/3 ML Neb Soln NEB PRN (10:28)
[2022-10-30] MEDS: ALPRAZolam 0.25 MG Tab PO PRN (20:33)
[2022-10-30] MEDS: Acetaminophen 325 MG Tab PO PRN (20:33)
[2022-10-30] MEDS: atorvaSTATin 40 MG Tab PO SCH (20:48)
[2022-10-30] MEDS: Melatonin 3 MG Tab PO SCH (20:48)
[2022-10-31] MEDS: Albuterol/Ipratropium 3.0-0.5 MG/3 ML Neb Soln NEB SCH ×4 (06:47→21:14)
[2022-10-31] MEDS: Fluticasone NASAL Spray 16 GM Bottle NASBOTH SCH (08:21)
[2022-10-31] MEDS: Levofloxacin 500 MG Tab PO SCH (08:21)
[2022-10-31] MEDS: Aspirin 81 MG Tab.EC PO SCH (08:22)
[2022-10-31] MEDS: predniSONE 20 MG Tab PO SCH (08:22)
[2022-10-31] MEDS: FLUoxetine 20 MG Cap PO SCH (08:23)
[2022-10-31] MEDS: Emollient 454 GM Jar TOP SCH (08:24)
[2022-10-31] MEDS: Multivitamin Tab PO SCH (08:24)
[2022-10-31] MEDS: Enoxaparin 40 MG/0.4 ML Syringe SUBCUT SCH (08:24)
[2022-10-31] MEDS: Gabapentin 300 MG Cap PO SCH ×3 (08:27→21:23)
[2022-10-31] MEDS: Melatonin 3 MG Tab PO SCH (21:14)
[2022-10-31] MEDS: atorvaSTATin 40 MG Tab PO SCH (21:14)
[2022-10-31] MEDS: guaiFENesin 600 MG Tab.ER PO PRN (21:18)
[2022-10-31] MEDS: Acetaminophen 325 MG Tab PO PRN (21:19)
[2022-10-31] MEDS: ALPRAZolam 0.25 MG Tab PO PRN (21:19)
[2022-11-01] MEDS: Albuterol/Ipratropium 3.0-0.5 MG/3 ML Neb Soln NEB SCH (06:40)
[2022-11-01] MEDS: Levofloxacin 500 MG Tab PO SCH (09:01)
[2022-11-01] MEDS: Fluticasone NASAL Spray 16 GM Bottle NASBOTH SCH (09:01)
[2022-11-01] MEDS: predniSONE 20 MG Tab PO SCH (09:05)
[2022-11-01] MEDS: Aspirin 81 MG Tab.EC PO SCH (09:05)
[2022-11-01] MEDS: Gabapentin 300 MG Cap PO SCH (09:05)
[2022-11-01] MEDS: FLUoxetine 20 MG Cap PO SCH (09:06)
[2022-11-01] MEDS: Multivitamin Tab PO SCH (09:06)
[2022-11-01] MEDS: Enoxaparin 40 MG/0.4 ML Syringe SUBCUT SCH (09:06)
[2022-11-01] MEDS: Emollient 454 GM Jar TOP SCH (09:12)
== END 2022-11-01 10:07 | DRG 191 ==
LOC: FB.MS 12:26
PROVIDERS: ADMIT Family Medicine; ATTEND Family Medicine
DX: J44.1 Chronic obstructive pulmonary disease with (acute) exacerbation (principal); D69.3 Immune thrombocytopenic purpura; I69.354 Hemiplegia and hemiparesis following cerebral infarction affecting left non-dominant side; J44.0 Chronic obstructive pulmonary disease with (acute) lower respiratory infection; F41.9 Anxiety disorder, unspecified; Z51.5 Encounter for palliative care; N40.1 Benign prostatic hyperplasia with lower urinary tract symptoms; Z20.822 Contact with and (suspected) exposure to COVID-19; F17.210 Nicotine dependence, cigarettes, uncomplicated; E78.00 Pure hypercholesterolemia, unspecified; K21.9 Gastro-esophageal reflux disease without esophagitis; G89.29 Other chronic pain; M54.9 Dorsalgia, unspecified; F32.9 Major depressive disorder, single episode, unspecified; E11.9 Type 2 diabetes mellitus without complications; D64.9 Anemia, unspecified; Z86.19 Personal history of other infectious and parasitic diseases; Z79.899 Other long term (current) drug therapy; Z79.82 Long term (current) use of aspirin; Z93.3 Colostomy status; Z79.52 Long term (current) use of systemic steroids; Z98.49 Cataract extraction status, unspecified eye; Z90.89 Acquired absence of other organs
CPT/HCPCS: 36415; 71046; 80048; 85025; 86140; 87040; 94640; A9270-GY; J1650; J1956; J2930; J3490; J7512; J7620; U0002

== ENCOUNTER 2022-12-03 05:08 | Inpatient (IN) | payer MEDICARE, BC ==
[2022-12-03 05:38] LABS: ESTIMATED GFR 89 mL/min (>60)
[2022-12-03] MEDS ORDERED: Piperacillin/Tazobactam 3.375 GM in Sodium Chloride 0.9% 50 ML IV SCH (06:15)
[2022-12-03 06:39] LABS: CORONAVIRUS COVID-19 NAA NEGATIVE (NEGATIVE)
[2022-12-03] MEDS: Saccharomyces Boulardii (Probiotic) 250 MG Cap PO SCH ×3 (06:41→20:11)
[2022-12-03] MEDS: Azithromycin 500 MG in Sodium Chloride 0.9% 250 ML IV SCH (06:56)
[2022-12-03 07:28] LABS: BASE EXCESS VENOUS,POC 4 mmol/L (-2 - 3+); PCO2 VENOUS,POC 56 mmHg (41-51); PH VENOUS,POC 7.36 pH Units (7.32-7.43)
[2022-12-03] MEDS: predniSONE 20 MG Tab PO SCH (07:57)
[2022-12-03] MEDS ORDERED: Albuterol/Ipratropium 3.0-0.5 MG/3 ML Neb Soln NEB ONE (07:59)
[2022-12-03] MEDS ORDERED: predniSONE 20 MG Tab PO SCH (08:00)
[2022-12-03] MEDS ORDERED: Albuterol/Ipratropium 3.0-0.5 MG/3 ML Neb Soln NEB PRN (08:04)
[2022-12-03] MEDS ORDERED: Acetaminophen 325 MG Tab PO PRN (11:41)
[2022-12-03] MEDS ORDERED: ALPRAZolam 0.25 MG Tab PO PRN (11:41)
[2022-12-03] MEDS: Nicotine 14 MG/24 Hr Patch TRDERM SCH (15:07)
[2022-12-03] MEDS ORDERED: Albuterol/Ipratropium 3.0-0.5 MG/3 ML Neb Soln NEB SCH (16:00)
[2022-12-03] MEDS ORDERED: ALBUTEROL INH PRN (17:09)
[2022-12-03] MEDS ORDERED: IPRATROPIUM INH PRN (17:10)
[2022-12-03] MEDS ORDERED: ALBUTEROL INH SCH (17:15)
[2022-12-03] MEDS ORDERED: IPRATROPIUM INH SCH (17:15)
[2022-12-03] MEDS: Albuterol/Ipratropium 3.0-0.5 MG/3 ML Neb Soln NEB SCH (20:11)
[2022-12-03] MEDS: ALPRAZolam 0.25 MG Tab PO SCH (20:11)
[2022-12-03] MEDS: DOCUSATE SODIUM PO SCH (20:14)
[2022-12-03] MEDS: SENNOSIDES PO SCH (20:14)
[2022-12-03] MEDS: Budesonide 0.5 MG/2 ML Neb Susp NEB SCH (20:19)
[2022-12-03] MEDS ORDERED: MELATONIN 3 MG PO SCH (21:00)
[2022-12-03] MEDS ORDERED: Gabapentin 300 MG Cap PO SCH (21:00)
[2022-12-03] MEDS ORDERED: Aluminum Hydroxide/Magnesium Hydroxide Susp 30 ML Cup PO PRN (21:05)
[2022-12-04] MEDS: Sodium Chloride 0.9% 10 ML Syringe FLUSH PRN ×2 (05:28→06:49)
[2022-12-04] MEDS: Azithromycin 500 MG in Sodium Chloride 0.9% 250 ML IV SCH (05:31)
[2022-12-04] MEDS: Budesonide 0.5 MG/2 ML Neb Susp NEB SCH ×3 (05:40→20:09)
[2022-12-04] MEDS: Albuterol/Ipratropium 3.0-0.5 MG/3 ML Neb Soln NEB SCH ×5 (05:50→20:08)
[2022-12-04 07:05] LABS: ESTIMATED GFR 89 mL/min (>60)
[2022-12-04] MEDS ORDERED: Aspirin 81 MG Tab.EC PO SCH (09:00)
[2022-12-04] MEDS ORDERED: FEXOFENADINE 180 MG PO SCH (09:00)
[2022-12-04] MEDS ORDERED: Fluticasone NASAL Spray 16 GM Bottle *PT OWN MED NASBOTH SCH (09:00)
[2022-12-04] MEDS ORDERED: Gabapentin 300 MG Cap *PT OWN MED PO SCH (09:00)
[2022-12-04] MEDS: Enoxaparin 40 MG/0.4 ML Syringe SUBCUT SCH (09:04)
[2022-12-04] MEDS: SENNOSIDES PO SCH (09:06)
[2022-12-04] MEDS: DOCUSATE SODIUM PO SCH (09:06)
[2022-12-04] MEDS: predniSONE 20 MG Tab PO SCH (09:11)
[2022-12-04] MEDS: Nicotine 14 MG/24 Hr Patch TRDERM SCH (09:16)
[2022-12-04] MEDS: Saccharomyces Boulardii (Probiotic) 250 MG Cap PO SCH ×2 (09:16→20:09)
[2022-12-04] MEDS ORDERED: Gabapentin 300 MG Cap PO SCH (09:51)
[2022-12-04] MEDS: Gabapentin 300 MG Cap PO SCH ×2 (12:15→20:15)
[2022-12-04] MEDS: Albuterol/Ipratropium 3.0-0.5 MG/3 ML Neb Soln NEB PRN (14:23)
[2022-12-04] MEDS: atorvaSTATin 40 MG Tab PO SCH (20:09)
[2022-12-04] MEDS: Melatonin 3 MG Tab PO SCH (20:09)
[2022-12-04] MEDS: ALPRAZolam 0.25 MG Tab PO SCH (20:14)
[2022-12-05] MEDS: Sodium Chloride 0.9% 10 ML Syringe FLUSH PRN ×2 (06:13→07:36)
[2022-12-05] MEDS: Azithromycin 500 MG in Sodium Chloride 0.9% 250 ML IV SCH (06:14)
[2022-12-05] MEDS: Albuterol/Ipratropium 3.0-0.5 MG/3 ML Neb Soln NEB SCH ×4 (06:28→20:47)
[2022-12-05] MEDS: Budesonide 0.5 MG/2 ML Neb Susp NEB SCH ×2 (06:28→20:50)
[2022-12-05] MEDS: Saccharomyces Boulardii (Probiotic) 250 MG Cap PO SCH ×2 (09:27→20:51)
[2022-12-05] MEDS: FLUoxetine 20 MG Cap PO SCH (09:27)
[2022-12-05] MEDS: Fluticasone NASAL Spray 16 GM Bottle NASBOTH SCH (09:27)
[2022-12-05] MEDS: predniSONE 20 MG Tab PO SCH (09:27)
[2022-12-05] MEDS: Gabapentin 600 MG Tab PO SCH (09:29)
[2022-12-05] MEDS: Nicotine 14 MG/24 Hr Patch TRDERM SCH (09:30)
[2022-12-05] MEDS: NICOTINE PATCH TRDERM SCH (09:32)
[2022-12-05] MEDS: Enoxaparin 40 MG/0.4 ML Syringe SUBCUT SCH (09:32)
[2022-12-05] MEDS: Gabapentin 300 MG Cap PO SCH ×2 (12:40→20:50)
[2022-12-05] MEDS: Melatonin 3 MG Tab PO SCH (20:50)
[2022-12-05] MEDS: atorvaSTATin 40 MG Tab PO SCH (20:50)
[2022-12-05] MEDS: ALPRAZolam 0.25 MG Tab PO SCH (20:58)
[2022-12-06] MEDS: Codeine/guaiFENesin 10-100 MG/5 ML Syrup 5 ML Cup PO PRN (00:48)
[2022-12-06] MEDS: Albuterol/Ipratropium 3.0-0.5 MG/3 ML Neb Soln NEB PRN (03:10)
[2022-12-06] MEDS: Albuterol/Ipratropium 3.0-0.5 MG/3 ML Neb Soln NEB SCH ×4 (06:31→20:22)
[2022-12-06 06:54] LABS: ESTIMATED GFR 92 mL/min (>60)
[2022-12-06] MEDS: Budesonide 0.5 MG/2 ML Neb Susp NEB SCH ×2 (07:29→20:33)
[2022-12-06] MEDS: Nicotine 14 MG/24 Hr Patch TRDERM SCH (08:41)
[2022-12-06] MEDS: Fluticasone NASAL Spray 16 GM Bottle NASBOTH SCH (08:42)
[2022-12-06] MEDS: Saccharomyces Boulardii (Probiotic) 250 MG Cap PO SCH ×2 (08:42→20:23)
[2022-12-06] MEDS: Azithromycin 500 MG Tab PO SCH (08:42)
[2022-12-06] MEDS: predniSONE 20 MG Tab PO SCH (08:42)
[2022-12-06] MEDS: FLUoxetine 20 MG Cap PO SCH (08:42)
[2022-12-06] MEDS: Enoxaparin 40 MG/0.4 ML Syringe SUBCUT SCH (08:43)
[2022-12-06] MEDS: NICOTINE PATCH TRDERM SCH (08:43)
[2022-12-06] MEDS: Gabapentin 600 MG Tab PO SCH (08:51)
[2022-12-06] MEDS: Gabapentin 300 MG Cap PO SCH ×2 (11:32→20:22)
[2022-12-06] MEDS: Melatonin 3 MG Tab PO SCH (20:24)
[2022-12-06] MEDS: atorvaSTATin 40 MG Tab PO SCH (20:24)
[2022-12-06] MEDS: ALPRAZolam 0.25 MG Tab PO SCH (20:32)
[2022-12-07] MEDS: Codeine/guaiFENesin 10-100 MG/5 ML Syrup 5 ML Cup PO PRN (03:03)
[2022-12-07] MEDS: Albuterol/Ipratropium 3.0-0.5 MG/3 ML Neb Soln NEB SCH ×2 (05:21→06:03)
[2022-12-07] MEDS: Budesonide 0.5 MG/2 ML Neb Susp NEB SCH ×2 (05:35→06:03)
[2022-12-07] MEDS: predniSONE 20 MG Tab PO SCH (07:51)
[2022-12-07] MEDS: FLUoxetine 20 MG Cap PO SCH (08:02)
[2022-12-07] MEDS: Gabapentin 600 MG Tab PO SCH (08:02)
[2022-12-07] MEDS: Nicotine 14 MG/24 Hr Patch TRDERM SCH (08:02)
[2022-12-07] MEDS: Fluticasone NASAL Spray 16 GM Bottle NASBOTH SCH (08:03)
[2022-12-07] MEDS: Azithromycin 500 MG Tab PO SCH (08:04)
[2022-12-07] MEDS: NICOTINE PATCH TRDERM SCH (08:04)
[2022-12-07] MEDS: Saccharomyces Boulardii (Probiotic) 250 MG Cap PO SCH (08:04)
[2022-12-07] MEDS: Enoxaparin 40 MG/0.4 ML Syringe SUBCUT SCH (08:04)
[2022-12-09] MEDS ORDERED: predniSONE 10 MG Tab PO SCH (09:00)
== END 2022-12-07 10:25 | DRG 189 ==
LOC: FB.ED 05:08 → FB.MS 07:36 → OBSVTOIN 12-04 09:00
PROVIDERS: ADMIT Family Medicine; ATTEND Family Medicine
DX: J96.01 Acute respiratory failure with hypoxia (principal); J44.1 Chronic obstructive pulmonary disease with (acute) exacerbation; I69.354 Hemiplegia and hemiparesis following cerebral infarction affecting left non-dominant side; D69.3 Immune thrombocytopenic purpura; I25.10 Atherosclerotic heart disease of native coronary artery without angina pectoris; D72.829 Elevated white blood cell count, unspecified; F06.4 Anxiety disorder due to known physiological condition; F41.0 Panic disorder [episodic paroxysmal anxiety]; I69.319 Unspecified symptoms and signs involving cognitive functions following cerebral infarction; Z51.5 Encounter for palliative care; F17.210 Nicotine dependence, cigarettes, uncomplicated; Z20.822 Contact with and (suspected) exposure to COVID-19; E66.01 Morbid (severe) obesity due to excess calories; Z93.3 Colostomy status; Z86.16 Personal history of COVID-19; E78.00 Pure hypercholesterolemia, unspecified; F17.200 Nicotine dependence, unspecified, uncomplicated; K21.9 Gastro-esophageal reflux disease without esophagitis; T38.0X5A Adverse effect of glucocorticoids and synthetic analogues, initial encounter; D64.9 Anemia, unspecified; N40.0 Benign prostatic hyperplasia without lower urinary tract symptoms; E11.9 Type 2 diabetes mellitus without complications; Z79.82 Long term (current) use of aspirin; Z79.899 Other long term (current) drug therapy; Z79.51 Long term (current) use of inhaled steroids; Z68.34 Body mass index [BMI] 34.0-34.9, adult
CPT/HCPCS: 0241U; 36415; 71045; 80048; 80053; 81001; 82947; 83605; 83735; 83880; 84484; 85025; 86140; 87040; 88104; 93005; 93010; 94640; 94669; 96365; 96366; 96367; 97161-GP; 97165-GO; 99285; 99285-25; A9270-GY; G0378; J0456; J1650; J2543; J3490; J7050; J7512; J7620; U0002

== ENCOUNTER 2023-05-06 21:24 | Emergency (ER) | payer MEDICARE, BC ==
[2023-05-06 22:00] LABS: BASOPHILS PERCENT AUTO 0.2 % (0.3-3.8); EOSINOPHILS ABSOLUTE AUTO 0.1 x10-3/uL (0.0-0.6); HEMATOCRIT 40.8 % (38.3-50.1); HEMOGLOBIN 13.4 g/dL (12.9-17.7); LYMPHOCYTES ABSOLUTE AUTO 2.1 x10-3/uL (0.5-4.5); LYMPHOCYTES PERCENT AUTO 16.1 % (15.8-45.3); MEAN CORPUSCULAR HEMOGLOBIN 29.6 pg (27.0-33.3); MEAN CORPUSCULAR HGB CONC 32.9 g/dL (28.7-35.3); MEAN PLATELET VOLUME 8.9 fL (6.7-11.0); MONOCYTES ABSOLUTE AUTO 0.8 x10-3/uL (0.0-1.2); MONOCYTES PERCENT AUTO 6.1 % (5.5-15.2); NEUTROPHILS ABSOLUTE AUTO 10.2 x10-3/uL (1.7-6.9); NEUTROPHILS PERCENT AUTO 76.6 % (40.3-71.8); PLATELET COUNT,PLT 278 x10(3)uL (117-477); RED BLOOD CELL COUNT 4.53 x10(6)uL (3.90-5.90); RED CELL DISTRIBUTION WIDTH 14.2 % (12.4-15.0); WHITE BLOOD CELL COUNT,WBC 13.3 x10-3/uL (3.2-10.1)
[2023-05-06 22:04] LABS: BLOOD UREA NITROGEN,BUN 14 mg/dL (7-18); BUN/CREATININE RATIO 11.7 (9-20); CALCIUM 8.5 mg/dL (8.6-10.2); CARBON DIOXIDE,CO2 35 mmol/L (21-32); CHLORIDE,CL 102 mmol/L (100-110); CREATININE 1.2 mg/dL (0.70-1.30); ESTIMATED GFR 63 mL/min (>60); GLUCOSE RANDOM 144 mg/dL (80-116); POTASSIUM,K 3.8 mmol/L (3.5-5.3); SODIUM,NA 142 mmol/L (135-145)
[2023-05-06 22:10] LABS: A/G RATIO 0.8; ALANINE AMINOTRANSFERASE,ALT 24 U/L (12-36); ALBUMIN 3.1 g/dL (3.2-4.6); ALKALINE PHOSPHATASE 99 IU/L (56-112); AMYLASE 33 U/L (25-115); ASPARTATE AMNIOTRANSFERASE,AST 15 IU/L (5-25); BILIRUBIN TOTAL 0.2 mg/dL (0.1-1.3); PROTEIN TOTAL,TP 6.8 g/dL (6.0-8.0)
[2023-05-06] MEDS ORDERED: Sodium Chloride 0.9% 10 ML Syringe FLUSH PRN (22:11)
[2023-05-06] MEDS ORDERED: Sodium Chloride 0.9% 1,000 ML IV SCH (22:15)
[2023-05-06] MEDS ORDERED: Iopamidol 755 Mg/ML 100 ML Bottle IV ONE (22:22)
[2023-05-07] MEDS ORDERED: Lidocaine 2% HCl 6 ML Jel MM STA (00:31)
[2023-05-07 00:55] LABS: BILIRUBIN,URINE NEGATIVE (NEGATIVE); GLUCOSE,URINE NORMAL (NORMAL); KETONES,URINE NEGATIVE (NEGATIVE); LEUKOCYTE ESTERASE,URINE NEGATIVE (NEGATIVE); NITRITE,URINE NEGATIVE (NEGATIVE); OCCULT BLOOD,URINE LARGE (NEGATIVE); PROTEIN,URINE NEGATIVE (NEGATIVE); UROBILINOGEN,URINE NORMAL (NEGATIVE)
[2023-05-07 01:01] LABS: APPEARANCE,URINE CLEAR (CLEAR); BACTERIA,URINE OCCASIONAL (NS); COLOR,URINE YELLOW (YELLOW); SQUAMOUS EPITHELIAL CELLS,UR OCCASIONAL (NS,R,O); WBC,URINE 0-5 (0-5)
== END 2023-05-07 02:00 ==
LOC: FB.ED 21:24
DX: K80.20 Calculus of gallbladder without cholecystitis without obstruction (principal); K43.9 Ventral hernia without obstruction or gangrene; N20.0 Calculus of kidney
CPT/HCPCS: 36415; 74177; 80053; 81001; 82150; 83690; 85025; 96360; 99284; 99285-25; A9270-GY; C1758; J7030; Q9967

== ENCOUNTER 2023-11-15 16:26 | Emergency (ER) | payer MEDICARE, BC, MEDICAID ==
[2023-11-15] MEDS ORDERED: Albuterol/Ipratropium 3.0-0.5 MG/3 ML Neb Soln NEB ONE ×2 (16:28→17:40)
[2023-11-15] MEDS ORDERED: methylPREDNISolone Sodium Succinate 125 MG/2 ML SDV IM ONE (16:29)
[2023-11-15] MEDS ORDERED: methylPREDNISolone Sodium Succinate 125 MG/2 ML SDV IVPUSH ONE (16:35)
[2023-11-15] MEDS ORDERED: Sodium Chloride 0.9% 10 ML Syringe FLUSH PRN (16:41)
[2023-11-15 17:25] LABS: BLOOD UREA NITROGEN,BUN 12 mg/dL (7-18); BUN/CREATININE RATIO 13.3 (9-20); CALCIUM 9.2 mg/dL (8.6-10.2); CARBON DIOXIDE,CO2 28 mmol/L (21-32); CHLORIDE,CL 103 mmol/L (100-110); CREATININE 0.9 mg/dL (0.70-1.30); EST CRCL DRUG DOSING (CG) 64.26 mL/min; ESTIMATED GFR 88 mL/min (>60); GLUCOSE RANDOM 154 mg/dL (80-116); HEMATOCRIT 40.4 % (38.3-50.1); HEMOGLOBIN 13.2 g/dL (12.9-17.7); MEAN CORPUSCULAR HEMOGLOBIN 29.3 pg (27.0-33.3); MEAN CORPUSCULAR HGB CONC 32.7 g/dL (28.7-35.3); MEAN CORPUSCULAR VOLUME 89.6 fL (80.8-98.7); MEAN PLATELET VOLUME 9.6 fL (6.7-11.0); PLATELET COUNT,PLT 222 x10(3)uL (117-477); POTASSIUM,K 4.7 mmol/L (3.5-5.3); RED CELL DISTRIBUTION WIDTH 14.9 % (12.4-15.0); SODIUM,NA 136 mmol/L (135-145); WHITE BLOOD CELL COUNT,WBC 17.8 x10-3/uL (3.2-10.1)
[2023-11-15 17:30] LABS: A/G RATIO 0.7; ALANINE AMINOTRANSFERASE,ALT 28 U/L (12-36); ALBUMIN 2.9 g/dL (3.2-4.6); ALKALINE PHOSPHATASE 84 IU/L (56-112); ASPARTATE AMNIOTRANSFERASE,AST 18 IU/L (5-25); BILIRUBIN TOTAL 0.3 mg/dL (0.1-1.3); PROTEIN TOTAL,TP 6.9 g/dL (6.0-8.0)
[2023-11-15 17:32] LABS: BASE EXCESS VENOUS,POC 4 mmol/L (-2 - 3+); PCO2 VENOUS,POC 36 mmHg (41-51)
[2023-11-15 17:37] LABS: TROPONIN I 18.9 pg/mL (4.0-60.3)
[2023-11-15] MEDS ORDERED: Naloxone 0.4 MG/ML SDV IVPUSH PRN (17:40)
[2023-11-15] MEDS ORDERED: Morphine 4 MG/ML VIAL IVPUSH ONE (17:40)
[2023-11-15 17:50] LABS: LYMPHOCYTES PERCENT MAN 9 % (13-37); MONOCYTES PERCENT MAN 3 % (4-12); SEG NEUTROPHILS PERCENT MAN 88 % (46-82)
[2023-11-15 18:09] LABS: INFLUENZA A NAA NEGATIVE (NEGATIVE); INFLUENZA B NAA NEGATIVE (NEGATIVE); RESPIRATORY SYNCYTIAL VIR NAA NEGATIVE (NEGATIVE)
[2023-11-15 18:26] LABS: CORONAVIRUS COVID-19 NAA NEGATIVE (NEGATIVE)
[2023-11-15] MEDS ORDERED: Metolazone 2.5 MG Tab PO ONE (18:29)
[2023-11-15] MEDS ORDERED: Furosemide 40 MG/4 ML VIAL IVPUSH ONE (18:29)
[2023-11-15 20:29] LABS: BILIRUBIN,URINE NEGATIVE (NEGATIVE); GLUCOSE,URINE NORMAL (NORMAL); KETONES,URINE NEGATIVE (NEGATIVE); LEUKOCYTE ESTERASE,URINE NEGATIVE (NEGATIVE); NITRITE,URINE NEGATIVE (NEGATIVE); OCCULT BLOOD,URINE NEGATIVE (NEGATIVE); PROTEIN,URINE NEGATIVE (NEGATIVE); UROBILINOGEN,URINE NORMAL (NEGATIVE)
[2023-11-15 20:35] LABS: APPEARANCE,URINE CLEAR (CLEAR); BACTERIA,URINE OCCASIONAL (NS); CALCIUM OXALATE CRYSTALS,URINE OCCASIONAL (NS); COLOR,URINE YELLOW (YELLOW); RBC,URINE 0-5 (0-5); SQUAMOUS EPITHELIAL CELLS,UR OCCASIONAL (NS,R,O); WBC,URINE 0-5 (0-5)
== END 2023-11-15 20:30 ==
LOC: FB.ED 16:26
DX: J44.1 Chronic obstructive pulmonary disease with (acute) exacerbation (principal); N40.1 Benign prostatic hyperplasia with lower urinary tract symptoms; Z93.3 Colostomy status; Z82.3 Family history of stroke; J45.909 Unspecified asthma, uncomplicated; E78.00 Pure hypercholesterolemia, unspecified; E11.9 Type 2 diabetes mellitus without complications; E66.9 Obesity, unspecified; Z68.36 Body mass index [BMI] 36.0-36.9, adult; Z79.82 Long term (current) use of aspirin; Z79.899 Other long term (current) drug therapy
CPT/HCPCS: 0241U; 36415; 71045; 80053; 81001; 83605; 83880; 84484; 85025; 93005; 93010; 96374; 96375; 99284; 99285-25; A9270-GY; J1940; J2270; J2930; J7620

== ENCOUNTER 2023-12-17 16:14 | Emergency (ER) | payer MEDICARE, BC, MEDICAID ==
[2023-12-17] MEDS: Sodium Chloride 0.9% 10 ML Syringe FLUSH PRN (17:15)
[2023-12-17] MEDS: Albuterol/Ipratropium 3.0-0.5 MG/3 ML Neb Soln NEB STA (17:20)
[2023-12-17] MEDS: methylPREDNISolone Sodium Succinate 125 MG/2 ML SDV IVPUSH ONE (17:20)
[2023-12-17 17:30] LABS: BASOPHILS ABSOLUTE AUTO 0.1 x10-3/uL (0.0-0.3); BASOPHILS PERCENT AUTO 0.8 % (0.3-3.8); EOSINOPHILS ABSOLUTE AUTO 0.5 x10-3/uL (0.0-0.6); EOSINOPHILS PERCENT AUTO 3.7 % (0.1-6.8); HEMATOCRIT 41.3 % (38.3-50.1); HEMOGLOBIN 13.4 g/dL (12.9-17.7); LYMPHOCYTES ABSOLUTE AUTO 1.9 x10-3/uL (0.5-4.5); LYMPHOCYTES PERCENT AUTO 13.8 % (15.8-45.3); MEAN CORPUSCULAR HEMOGLOBIN 28.8 pg (27.0-33.3); MEAN CORPUSCULAR HGB CONC 32.4 g/dL (28.7-35.3); MEAN CORPUSCULAR VOLUME 88.9 fL (80.8-98.7); MEAN PLATELET VOLUME 8.7 fL (6.7-11.0); MONOCYTES ABSOLUTE AUTO 1.1 x10-3/uL (0.0-1.2); MONOCYTES PERCENT AUTO 7.8 % (5.5-15.2); NEUTROPHILS PERCENT AUTO 73.9 % (40.3-71.8); PLATELET COUNT,PLT 355 x10(3)uL (117-477); RED BLOOD CELL COUNT 4.65 x10(6)uL (3.90-5.90); WHITE BLOOD CELL COUNT,WBC 13.6 x10-3/uL (3.2-10.1)
[2023-12-17 17:34] LABS: BLOOD UREA NITROGEN,BUN 16 mg/dL (7-18); BUN/CREATININE RATIO 17.8 (9-20); CALCIUM 9.2 mg/dL (8.6-10.2); CARBON DIOXIDE,CO2 32 mmol/L (21-32); CHLORIDE,CL 103 mmol/L (100-110); CREATININE 0.9 mg/dL (0.70-1.30); EST CRCL DRUG DOSING (CG) 64.26 mL/min; ESTIMATED GFR 88 mL/min (>60); GLUCOSE RANDOM 123 mg/dL (80-116); POTASSIUM,K 3.9 mmol/L (3.5-5.3); SODIUM,NA 142 mmol/L (135-145)
[2023-12-17 17:40] LABS: A/G RATIO 0.9; ALANINE AMINOTRANSFERASE,ALT 28 U/L (12-36); ALBUMIN 3.2 g/dL (3.2-4.6); ALKALINE PHOSPHATASE 94 IU/L (56-112); ASPARTATE AMNIOTRANSFERASE,AST 23 IU/L (5-25); BILIRUBIN TOTAL 0.4 mg/dL (0.1-1.3); PROTEIN TOTAL,TP 6.9 g/dL (6.0-8.0)
[2023-12-17 18:03] LABS: TROPONIN I 2409.9 pg/mL (4.0-60.3)
[2023-12-17] MEDS: Aspirin 81 MG Tab.Chew PO STA (18:32)
[2023-12-17 18:45] LABS: INR 0.98 (1.00-1.24); PROTHROMBIN TIME 10.2 sec (9.0-11.1)
[2023-12-17 18:47] LABS: PTT,PARTIAL THROMBOPLSTIN TIME 26.8 SECONDS (24.4-33.2)
[2023-12-17] MEDS: Heparin Sodium 5,000 Units/ML Vial IVPUSH ONE (18:57)
[2023-12-17] MEDS: Heparin Sodium/0.45% NaCl 500 ML IV SCH (19:30)
== END 2023-12-17 20:05 ==
LOC: FB.ED 16:14
DX: I21.4 Non-ST elevation (NSTEMI) myocardial infarction (principal); I50.9 Heart failure, unspecified; J44.1 Chronic obstructive pulmonary disease with (acute) exacerbation; E78.00 Pure hypercholesterolemia, unspecified; K21.9 Gastro-esophageal reflux disease without esophagitis; E11.9 Type 2 diabetes mellitus without complications; E66.9 Obesity, unspecified; Z68.36 Body mass index [BMI] 36.0-36.9, adult; Z86.73 Personal history of transient ischemic attack (TIA), and cerebral infarction without residual deficits; Z79.51 Long term (current) use of inhaled steroids; Z79.899 Other long term (current) drug therapy; Z79.82 Long term (current) use of aspirin; Z99.81 Dependence on supplemental oxygen; Z93.3 Colostomy status
CPT/HCPCS: 36415; 71045; 80053; 83880; 84484; 85025; 85379; 85610; 85730; 93005; 94640; 96365; 96375; 99285; A9270; J1644; J2930; J3490; 93010; J7620

== ENCOUNTER 2024-02-27 12:47 | Emergency (ER) | payer MEDICARE, BC, MEDICAID ==
[2024-02-27] MEDS: Albuterol/Ipratropium 3.0-0.5 MG/3 ML Neb Soln NEB ONE ×2 (13:04→13:30)
[2024-02-27] MEDS: methylPREDNISolone Sodium Succinate 125 MG/2 ML SDV IVPUSH ONE (13:04)
[2024-02-27 13:19] LABS: HEMATOCRIT 41.6 % (38.3-50.1); HEMOGLOBIN 13.3 g/dL (12.9-17.7); MEAN CORPUSCULAR HEMOGLOBIN 28.7 pg (27.0-33.3); MEAN CORPUSCULAR HGB CONC 31.9 g/dL (28.7-35.3); MEAN CORPUSCULAR VOLUME 89.9 fL (80.8-98.7); MEAN PLATELET VOLUME 8.4 fL (6.7-11.0); PLATELET COUNT,PLT 342 x10(3)uL (117-477); RED BLOOD CELL COUNT 4.62 x10(6)uL (3.90-5.90); RED CELL DISTRIBUTION WIDTH 15.5 % (12.4-15.0); WHITE BLOOD CELL COUNT,WBC 17.3 x10-3/uL (3.2-10.1)
[2024-02-27 13:30] LABS: A/G RATIO 0.8; ALANINE AMINOTRANSFERASE,ALT 25 U/L (12-36); ALKALINE PHOSPHATASE 99 IU/L (56-112); ASPARTATE AMNIOTRANSFERASE,AST 20 IU/L (5-25); BILIRUBIN TOTAL 0.5 mg/dL (0.1-1.3); BLOOD UREA NITROGEN,BUN 9 mg/dL (7-18); CALCIUM 8.6 mg/dL (8.6-10.2); CARBON DIOXIDE,CO2 29 mmol/L (21-32); CHLORIDE,CL 103 mmol/L (100-110); ESTIMATED GFR 78 mL/min (>60); GLUCOSE RANDOM 142 mg/dL (80-116); MAGNESIUM 1.9 mg/dL (1.8-2.5); POTASSIUM,K 4.9 mmol/L (3.5-5.3); PROTEIN TOTAL,TP 6.6 g/dL (6.0-8.0); SODIUM,NA 139 mmol/L (135-145)
[2024-02-27 13:43] LABS: EOSINOPHILS PERCENT MAN 6 % (0-5); LYMPHOCYTES PERCENT MAN 18 % (13-37); MONOCYTES PERCENT MAN 4 % (4-12); SEG NEUTROPHILS PERCENT MAN 72 % (46-82)
[2024-02-27 13:59] LABS: INFLUENZA A NAA NEGATIVE (NEGATIVE); INFLUENZA B NAA NEGATIVE (NEGATIVE); RESPIRATORY SYNCYTIAL VIR NAA NEGATIVE (NEGATIVE)
[2024-02-27 14:47] LABS: CORONAVIRUS COVID-19 NAA NEGATIVE (NEGATIVE)
[2024-02-27] MEDS: Doxycycline 100 MG Tab PO ONE (15:19)
== END 2024-02-27 16:05 | disposition home or self-care (01) ==
LOC: FB.ED 12:47
DX: J44.0 Chronic obstructive pulmonary disease with (acute) lower respiratory infection (principal); J20.9 Acute bronchitis, unspecified; J18.9 Pneumonia, unspecified organism; E78.00 Pure hypercholesterolemia, unspecified; J44.9 Chronic obstructive pulmonary disease, unspecified; K21.9 Gastro-esophageal reflux disease without esophagitis; E11.9 Type 2 diabetes mellitus without complications; E66.9 Obesity, unspecified; Z68.36 Body mass index [BMI] 36.0-36.9, adult; Z86.73 Personal history of transient ischemic attack (TIA), and cerebral infarction without residual deficits; Z79.82 Long term (current) use of aspirin; Z79.899 Other long term (current) drug therapy; Z79.51 Long term (current) use of inhaled steroids
CPT/HCPCS: 0241U; 36415; 71045; 80053; 83735; 83880; 84484; 85025; 93005; 94640; 96374; 99285-25; A9270-GY; J2930; J7620

== ENCOUNTER 2024-03-12 08:04 | Emergency (ER) | payer MEDICARE, BC, MEDICAID ==
[2024-03-12] MEDS: Albuterol/Ipratropium 3.0-0.5 MG/3 ML Neb Soln NEB ONE ×2 (08:15→09:24)
[2024-03-12] MEDS: predniSONE 20 MG Tab PO ONE (08:15)
[2024-03-12 08:36] LABS: BASOPHILS PERCENT AUTO 0.3 % (0.3-3.8); EOSINOPHILS ABSOLUTE AUTO 0.6 x10-3/uL (0.0-0.6); EOSINOPHILS PERCENT AUTO 5.2 % (0.1-6.8); HEMATOCRIT 40.3 % (38.3-50.1); HEMOGLOBIN 12.8 g/dL (12.9-17.7); LYMPHOCYTES PERCENT AUTO 17.8 % (15.8-45.3); MEAN CORPUSCULAR HEMOGLOBIN 28.7 pg (27.0-33.3); MEAN CORPUSCULAR HGB CONC 31.7 g/dL (28.7-35.3); MEAN CORPUSCULAR VOLUME 90.4 fL (80.8-98.7); MEAN PLATELET VOLUME 9.2 fL (6.7-11.0); MONOCYTES ABSOLUTE AUTO 0.9 x10-3/uL (0.0-1.2); NEUTROPHILS ABSOLUTE AUTO 7.6 x10-3/uL (1.7-6.9); NEUTROPHILS PERCENT AUTO 68.7 % (40.3-71.8); PLATELET COUNT,PLT 234 x10(3)uL (117-477); RED BLOOD CELL COUNT 4.46 x10(6)uL (3.90-5.90); RED CELL DISTRIBUTION WIDTH 15.8 % (12.4-15.0); WHITE BLOOD CELL COUNT,WBC 11.1 x10-3/uL (3.2-10.1)
[2024-03-12 08:49] LABS: A/G RATIO 0.8; ALANINE AMINOTRANSFERASE,ALT 22 U/L (12-36); ALBUMIN 2.8 g/dL (3.2-4.6); ALKALINE PHOSPHATASE 93 IU/L (56-112); ASPARTATE AMNIOTRANSFERASE,AST 15 IU/L (5-25); BILIRUBIN TOTAL 0.6 mg/dL (0.1-1.3); CALCIUM 8.9 mg/dL (8.6-10.2); CARBON DIOXIDE,CO2 34 mmol/L (21-32); CHLORIDE,CL 106 mmol/L (100-110); CREATININE 0.9 mg/dL (0.70-1.30); EST CRCL DRUG DOSING (CG) 62.03 mL/min; ESTIMATED GFR 88 mL/min (>60); GLUCOSE RANDOM 105 mg/dL (80-116); POTASSIUM,K 4.7 mmol/L (3.5-5.3); PROTEIN TOTAL,TP 6.5 g/dL (6.0-8.0); SODIUM,NA 145 mmol/L (135-145)
[2024-03-12 08:50] LABS: TROPONIN I 7.8 pg/mL (4.0-60.3)
[2024-03-12 08:58] LABS: BLOOD UREA NITROGEN,BUN 10 mg/dL (7-18); BUN/CREATININE RATIO 11.1 (9-20)
== END 2024-03-12 12:50 ==
LOC: FB.ED 08:04
DX: J44.1 Chronic obstructive pulmonary disease with (acute) exacerbation (principal); M79.602 Pain in left arm; J44.89 Other specified chronic obstructive pulmonary disease; K21.9 Gastro-esophageal reflux disease without esophagitis; E11.9 Type 2 diabetes mellitus without complications; E78.00 Pure hypercholesterolemia, unspecified; E66.9 Obesity, unspecified; Z79.899 Other long term (current) drug therapy; Z86.19 Personal history of other infectious and parasitic diseases; Z79.82 Long term (current) use of aspirin; Z87.891 Personal history of nicotine dependence; Z68.36 Body mass index [BMI] 36.0-36.9, adult
CPT/HCPCS: 36415; 71045; 73030-LT; 73080-LT; 80053; 83880; 84484; 85025; 85379; 94640; 99284; 99285; J7512; J7620